=== PATIENT | male | born 1955 | race Caucasian/White ===

== ENCOUNTER 2022-06-09 15:16 | Inpatient (IN) | payer MEDICARE, OTHER ==
[~2022-06-09] VITALS: Ht 175.3 cm; Wt 71.7 kg
[2022-06-09 16:04] LABS: Basophils # (auto) 0.1 10 ^3/uL (0-0.2); Basophils % (auto) 0.8 % (0.0-2.0); Eosinophils # (auto) 0.3 10 ^3/uL (0-0.8); Eosinophils % (auto) 2.4 % (0.0-7.0); Hematocrit 37.2 % (41.0-53.0); Hemoglobin 12.3 g/dL (13.5-17.5); Lymphocytes # (auto) 1.2 10 ^3/uL (0.4-5.4); Lymphocytes % (auto) 11.1 % (10.0-50.0); Mean Corpuscular Volume 87.9 fL (80.0-100.0); Monocytes # (auto) 0.8 10 ^3/uL (0-1.3); Monocytes % (auto) 7.7 % (0.0-12.0); Neutrophils # (auto) 8.4 10 ^3/uL (1.6-8.6); Nucleated Red Blood Cells % 0.2 %; Red Blood Cells 4.24 10^6/uL (4.5-5.90); Red Cell Distribution Width 15.3 % (11.8-14.3); White Blood Cell 10.7 10^3/uL (4.4-10.8)
[2022-06-09 16:14] LABS: INR 1.03 (0.9-1.15); Partial Thromboplastin Time 26.2 sec (24.6-33.4)
[2022-06-09 16:15] LABS: Albumin 2.9 g/dL (3.4-5.0); Calcium 8.6 mg/dL (8.5-10.1); Magnesium 2.3 mg/dL (1.6-2.6); Potassium 4.4 mmol/L (3.5-5.1)
[2022-06-09 16:17] LABS: BUN/Creatinine Ratio 11.8; Bilirubin, Total 0.7 mg/dL (0.2-1.0); Total Protein 5.4 g/dL (6.4-8.2)
[2022-06-09] MEDS ORDERED: cefTRIAXone 1GM/50ML D5W 50 ML IV ONE (18:00)
[2022-06-09] MEDS ORDERED: SODIUM CHLORIDE 0.9% 500 ML IV ONE (18:00)
[2022-06-09] MEDS ORDERED: AZITHROMYCIN 500MG/ 250ML 250 ML IV ONE (18:00)
[2022-06-09] MEDS ORDERED: ONDANSETRON HCL 4 MG/2 ML VIAL IV PRN (21:30)
[2022-06-09] MEDS ORDERED: FUROSEMIDE 20 MG/2 ML VIAL IV ONE (21:30)
[2022-06-09] MEDS ORDERED: ACETAMINOPHEN 325 MG TAB PO PRN (21:30)
[2022-06-09] MEDS ORDERED: DOCUSATE SOD 100 MG CAP PO PRN (21:30)
[2022-06-09] MEDS ORDERED: ALBUMIN 25% 100 ML IV ONE (21:30)
[2022-06-09] MEDS ORDERED: HYDROcodone-ACET 5/325MG TAB PO PRN (21:30)
[2022-06-09] MEDS ORDERED: NITROGLYCERIN 0.4 MG SL TAB SL PRN (23:00)
[2022-06-09] MEDS ORDERED: MORPHINE SULFATE INJ 2 MG/ml SYRG IV PRN (23:00)
[2022-06-10 01:20] VITALS: BP 118/66
[2022-06-10] MEDS ORDERED: CLOP75TA28 PO (02:32)
[2022-06-10] MEDS ORDERED: CARV25TA55 PO (02:32)
[2022-06-10] MEDS ORDERED: LOSA-69 PO (02:32)
[2022-06-10] MEDS ORDERED: ATOR-47 PO (02:32)
[2022-06-10] MEDS ORDERED: OXYB5TAB24 PO (02:32)
[2022-06-10] MEDS ORDERED: ASPI-543 PO (02:32)
[2022-06-10] MEDS ORDERED: AMLO-489 PO (02:32)
[2022-06-10 05:00] VITALS: BP 129/84
[2022-06-10 05:51] LABS: Basophils # (auto) 0.1 10 ^3/uL (0-0.2); Basophils % (auto) 0.7 % (0.0-2.0); Eosinophils # (auto) 0.4 10 ^3/uL (0-0.8); Eosinophils % (auto) 3.6 % (0.0-7.0); Hematocrit 35.2 % (41.0-53.0); Lymphocytes % (auto) 20.1 % (10.0-50.0); Mean Corpuscular Hemoglobin 29.9 pg (28.0-32.0); Mean Corpuscular Volume 87.8 fL (80.0-100.0); Monocytes # (auto) 0.9 10 ^3/uL (0-1.3); Monocytes % (auto) 9.5 % (0.0-12.0); Neutrophils # (auto) 6.5 10 ^3/uL (1.6-8.6); Neutrophils % (auto) 66.1 % (37.0-80.0); Red Blood Cells 4.01 10^6/uL (4.5-5.90); Red Cell Distribution Width 15.7 % (11.8-14.3); White Blood Cell 9.9 10^3/uL (4.4-10.8)
[2022-06-10 06:14] LABS: BUN/Creatinine Ratio 15.2; Calcium 8.2 mg/dL (8.5-10.1)
[2022-06-10 06:16] LABS: Bilirubin, Total 0.3 mg/dL (0.2-1.0); Total Protein 5.9 g/dL (6.4-8.2)
[2022-06-10 09:00] VITALS: BP 143/84
[2022-06-10] MEDS ORDERED: AZITHROMYCIN 500MG/ 250ML 250 ML IV SCH (10:00)
[2022-06-10] MEDS ORDERED: ASPirin 81 mg TAB PO SCH (10:00)
[2022-06-10] MEDS ORDERED: FUROSEMIDE 20 MG/2 ML VIAL IV SCH (10:00)
[2022-06-10 13:00] VITALS: BP 140/84
[2022-06-10] MEDS ORDERED: cefTRIAXone 1GM/50ML D5W 50 ML IV ONE (14:30)
[2022-06-10 17:00] VITALS: BP 149/93
[2022-06-10 17:12] LABS: Urine Bacteria FEW /hpf (None Seen); Urine Blood Negative /uL (Negative); Urine Mucus FEW (None Seen); Urine Specific Gravity 1.011 (1.001-1.035); Urine WBC 2 /hpf (0 - 3)
[2022-06-10 17:14] LABS: Amphetamine Screen, Urine POSITIVE (NEGATIVE); Barbiturate Scree,Urine NEGATIVE (NEGATIVE); Benzodiazephine Screen, Urine NEGATIVE (NEGATIVE); Cannabinoid Screen, Urine NEGATIVE (NEGATIVE); Cocaine Screen, Urine NEGATIVE (NEGATIVE); Opiate Scree,Urine NEGATIVE (NEGATIVE); Phencyclidine Screen, Urine NEGATIVE (NEGATIVE)
[2022-06-11] MEDS ORDERED: cefTRIAXone 1GM/50ML D5W 50 ML IV SCH (09:00)
== END 2022-06-10 22:16 | disposition left against medical advice (07) | DRG 308 ==
LOC: ER 15:16 → EDBD 15:16 → TELE 22:53 → TELE-EAST 23:57
PROVIDERS: ADMIT Nurse Practitioner Family; ATTEND Internal Medicine Nephrology
DX: R00.1 Bradycardia, unspecified (principal); J18.9 Pneumonia, unspecified organism; G93.40 Encephalopathy, unspecified; I13.0 Hypertensive heart and chronic kidney disease with heart failure and stage 1 through stage 4 chronic kidney disease, or unspecified chronic kidney disease; I95.9 Hypotension, unspecified; E86.0 Dehydration; E86.1 Hypovolemia; N18.32 Chronic kidney disease, stage 3b; Z53.29 Procedure and treatment not carried out because of patient's decision for other reasons; I25.10 Atherosclerotic heart disease of native coronary artery without angina pectoris; E78.5 Hyperlipidemia, unspecified; I50.9 Heart failure, unspecified; R09.89 Other specified symptoms and signs involving the circulatory and respiratory systems; R55 Syncope and collapse; Z20.822 Contact with and (suspected) exposure to COVID-19
CPT/HCPCS: 36415; 71045; 80053; 80307; 81001; 83735; 83880; 84484; 85025; 85610; 85730; 87040; 93005; 93306; 96365; 96366; 96367; 96368; 96375; 99291; G0378; J0696; P9047

== ENCOUNTER 2023-05-29 14:35 | Inpatient (IN) | payer MEDICARE, OTHER ==
[~2023-05-29] VITALS: Ht 175.3 cm; Wt 79.0 kg
[~2023-05-29 14:35] MED LIST: AMLO1TAB22 PO; ASPI-543 PO; ATOR-47 PO; CARV25TA55 PO; CLOP75TA28 PO; LOSA50TA46 PO; OXYB5TAB24 PO
[2023-05-29 15:02] LABS: Basophils # (auto) 0.1 10 ^3/uL (0-0.2); Basophils % (auto) 1.2 % (0.0-2.0); Eosinophils # (auto) 0.4 10 ^3/uL (0-0.8); Eosinophils % (auto) 5.6 % (0.0-7.0); Hematocrit 37.8 % (41.0-53.0); Hemoglobin 12.7 g/dL (13.5-17.5); Lymphocytes # (auto) 1.5 10 ^3/uL (0.4-5.4); Lymphocytes % (auto) 18.7 % (10.0-50.0); Mean Corpuscular Hemoglobin 29.5 pg (28.0-32.0); Mean Corpuscular Hgb Conc. 33.7 g/dL (32.0-36.0); Mean Corpuscular Volume 87.6 fL (80.0-100.0); Monocytes # (auto) 0.7 10 ^3/uL (0-1.3); Monocytes % (auto) 8.3 % (0.0-12.0); Neutrophils # (auto) 5.3 10 ^3/uL (1.6-8.6); Neutrophils % (auto) 66.2 % (37.0-80.0); Nucleated Red Blood Cells % 0.1 %; Red Blood Cells 4.31 10^6/uL (4.5-5.90)
[2023-05-29 15:22] LABS: Albumin 3.4 g/dL (3.4-5.0); Calcium 8.8 mg/dL (8.5-10.1); Potassium 4.7 mmol/L (3.5-5.1)
[2023-05-29 15:25] LABS: Bilirubin, Total 0.8 mg/dL (0.2-1.0); Total Protein 6.1 g/dL (6.4-8.2)
[2023-05-29] MEDS ORDERED: hydrALAZINE HCL 20 MG/ML VL IV ONE (16:00)
[2023-05-29] MEDS ORDERED: FUROSEMIDE 40 MG/4 ML VIAL IV ONE (17:00)
[2023-05-29] MEDS ORDERED: IPRATROPIUM BROM 0.5 MG/2.5ML INH SOL NEB PRN (18:00)
[2023-05-29] MEDS ORDERED: ALBUTEROL SULF 2.5 MG/0.5ML(0.5%) NEB SOLN NEB PRN (18:00)
[2023-05-29] MEDS ORDERED: NITROGLYCERIN 0.4 MG SL TAB SL PRN (18:00)
[2023-05-29] MEDS ORDERED: hydrALAZINE HCL 20 MG/ML VL IV PRN (18:00)
[2023-05-29] MEDS ORDERED: DOCUSATE SOD 100 MG CAP PO PRN (18:00)
[2023-05-29] MEDS ORDERED: MORPHINE SULFATE INJ 2 MG/ml SYRG IV PRN (18:00)
[2023-05-29 18:39] VITALS: O2SAT 97
[2023-05-29 18:40] VITALS: O2SAT 97
[2023-05-29 19:04] VITALS: BP 125/70; PULSE 74; RESP 18; TEMP 97.9; O2SAT 99
[2023-05-29 19:20] VITALS: PULSE 79; RESP 27; TEMP 98; O2SAT 97
[2023-05-29] MEDS: SODIUM CHLOR 0.9% PF (SALINE LOCK) 10ML VIAL/SYR IV SCH (22:07)
[2023-05-29] MEDS: CARVEDILOL 12.5 MG TAB PO SCH (22:14)
[2023-05-30 04:12] LABS: Amphetamine Screen, Urine POSITIVE (NEGATIVE); Barbiturate Scree,Urine NEGATIVE (NEGATIVE); Benzodiazephine Screen, Urine NEGATIVE (NEGATIVE); Cannabinoid Screen, Urine NEGATIVE (NEGATIVE)
[2023-05-30 04:19] LABS: Cocaine Screen, Urine NEGATIVE (NEGATIVE); Opiate Scree,Urine NEGATIVE (NEGATIVE); Phencyclidine Screen, Urine NEGATIVE (NEGATIVE)
[2023-05-30 05:32] LABS: Basophils # (auto) 0.1 10 ^3/uL (0-0.2); Basophils % (auto) 0.9 % (0.0-2.0); Eosinophils # (auto) 0.4 10 ^3/uL (0-0.8); Eosinophils % (auto) 4.9 % (0.0-7.0); Hematocrit 35.4 % (41.0-53.0); Lymphocytes # (auto) 1.5 10 ^3/uL (0.4-5.4); Lymphocytes % (auto) 17.9 % (10.0-50.0); Mean Corpuscular Hemoglobin 29.6 pg (28.0-32.0); Mean Corpuscular Hgb Conc. 33.8 g/dL (32.0-36.0); Mean Corpuscular Volume 87.5 fL (80.0-100.0); Monocytes # (auto) 0.7 10 ^3/uL (0-1.3); Monocytes % (auto) 8.6 % (0.0-12.0); Neutrophils # (auto) 5.5 10 ^3/uL (1.6-8.6); Neutrophils % (auto) 67.7 % (37.0-80.0); Red Blood Cells 4.04 10^6/uL (4.5-5.90); Red Cell Distribution Width 14.9 % (11.8-14.3); White Blood Cell 8.1 10^3/uL (4.4-10.8)
[2023-05-30 05:48] LABS: Calcium 8.4 mg/dL (8.5-10.1); Potassium 3.7 mmol/L (3.5-5.1)
[2023-05-30 05:51] LABS: BUN/Creatinine Ratio 17.2 (10.0-20.0); Bilirubin, Total 0.8 mg/dL (0.2-1.0)
[2023-05-30] MEDS: SODIUM CHLOR 0.9% PF (SALINE LOCK) 10ML VIAL/SYR IV SCH (06:02)
[2023-05-30 08:00] VITALS: PULSE 73; RESP 16; O2SAT 98
[2023-05-30] MEDS ORDERED: ASPirin-EC 81 mg tab PO SCH (08:00)
[2023-05-30 10:00] VITALS: BP 136/78; PULSE 69; RESP 16; O2SAT 98
[2023-05-30] MEDS ORDERED: CLOPIDOGREL BISULFATE 75 MG TAB PO SCH (10:00)
[2023-05-30] MEDS ORDERED: amLODIPine BESYLATE 5 MG TAB PO SCH (10:00)
[2023-05-30] MEDS ORDERED: LOSARTAN POTASSIUM 50 MG TAB PO SCH (10:00)
[2023-05-30] MEDS ORDERED: ATORVASTATIN 20 MG TAB PO SCH (10:00)
[2023-05-30] MEDS: CARVEDILOL 12.5 MG TAB PO SCH (10:04)
== END 2023-05-30 10:41 | disposition left against medical advice (07) | DRG 291 ==
LOC: ER 14:35 → TELE 18:26
PROVIDERS: ADMIT Internal Medicine Pulmonary Disease; ATTEND Student in an Organized Health Care Education/Training Program
DX: I13.0 Hypertensive heart and chronic kidney disease with heart failure and stage 1 through stage 4 chronic kidney disease, or unspecified chronic kidney disease (principal); I50.33 Acute on chronic diastolic (congestive) heart failure; F19.20 Other psychoactive substance dependence, uncomplicated; N17.9 Acute kidney failure, unspecified; I16.0 Hypertensive urgency; Z53.29 Procedure and treatment not carried out because of patient's decision for other reasons; I25.10 Atherosclerotic heart disease of native coronary artery without angina pectoris; N18.9 Chronic kidney disease, unspecified; Z80.0 Family history of malignant neoplasm of digestive organs; Z95.5 Presence of coronary angioplasty implant and graft; I25.2 Old myocardial infarction; Z82.49 Family history of ischemic heart disease and other diseases of the circulatory system; Z72.0 Tobacco use
CPT/HCPCS: 36415; 71045; 80053; 80307; 83880; 84484; 85025; 93005; 96374; 96375; 99291; G0378

== ENCOUNTER 2025-08-09 18:15 | Inpatient (IN) | payer OTHER ==
[~2025-08-09] VITALS: Ht 175.3 cm; Wt 70.4 kg
[~2025-08-09 18:15] MED LIST changes: +LOSA-534 PO; -LOSA50TA46 PO
--- NOTE | 2025-08-09 19:14 | ECG ---
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
[2025-08-09] MEDS ORDERED: HEPARIN SODIUM (PORCINE) 5000 UNITS/ML 1ML VIAL IV ONE (19:30)
--- NOTE | 2025-08-09 19:34 | ED.PDOC ---
History of Present Illness HPI Comments 70-year-old female brought by paramedics because of chest pain for the past 2- 1/2 hours hold watching TV. History of coronary artery disease with four stent placements. Other than a coronary artery disease he does have a history of hypotension continues to smoke cigarettes. He is on Plavix. His blood pressure on arrival was 230 systolic. He was given nitro and aspirin in the field with mild relief. Chief Complaint: Chest Pain Time Seen by MD: 18:58 Primary Care Provider: SC Reviewed Notes: Nurses Notes, Medications, Allergies Allergies: Coded Allergies: NO KNOWN ALLERGIES (Unverified , 05/08/10) Home Meds Reported Medications Clopidogrel Bisulfate (Plavix) 75 Mg Tab, 1 TAB PO DAILY, #90 TAB 1 Refill 06/10/22 Oxybutynin Chloride (Ditropan Xl) 5 Mg Tab, 5 MG PO, TAB 06/10/22 Losartan Potassium (Losartan Potassium) 50 Mg Tab, 1 TAB PO DAILY, #30 TAB 5 Refills 06/10/22 Carvedilol (Carvedilol) 25 Mg Tab, 25 MG PO Q12HR for 30 Days, MG 06/10/22 Atorvastatin Calcium (ATORVASTATIN CALCIUM) 80 Mg Tab, 1 TAB PO DAILY, #30 TAB 5 Refills 06/10/22 Amlodipine Besylate (Amlodipine Besylate) 5 Mg Tab, 1 TAB PO DAILY, #30 TAB 5 Refills 06/10/22 Aspirin (Aspir-Low) 81 Mg Tab, 81 MG PO DAILY@BREAKFAST for 30 Days, MG 06/10/22 Information Source: Patient, Emergency Med Personnel Mode of Arrival: EMS Severity: Moderate Timing: Days Duration: Since onset Past Medical History PAST MEDICAL HISTORY: HTN, OR Surgical History: Unknown Family History Family History: Reviewed,noncontributory to illness Social History Smoker: Non-Smoker Alcohol: Denies ETOH Use Drugs: Denies Drug Use Lives In: Home Constitutional: denies: chills, diaphoresis, fatigue, fever, malaise, sweats, weakness, others EENTM: denies: blurred vision, double vision, ear bleeding, ear discharge, ear drainage, ear pain, ear ringing, eye pain, eye redness, hearing loss, mouth pain, mouth swelling, nasal discharge, nose bleeding, nose congestion, nose pain, photophobia, tearing, throat pain, throat swelling, voice changes, others Respiratory: denies: cough, hemoptysis, orthopnea, SOB at rest, shortness of breath, SOB with excertion, stridor, wheezing, others Cardiovascular: reports: chest pain; denies: dizzy spells, diaphoresis, Dyspnea on exertion, edema, irregular heart beat, left arm pain, lightheadedness, palpitations, PND, syncope, others Gastrointestinal: denies: abdomen distended, abdominal pain, blood streaked bowels, constipated, diarrhea, dysphagia, difficulty swallowing, hematemesis, melena, nausea, poor appetite, poor fluid intake, rectal bleeding, rectal pain, vomiting, others Genitourinary: denies: burning, dysuria, flank pain, frequency, hematuria, incontinence, penile discharge, penile sore, pain, testicle pain, testicle swelling, urgency, others Neurological: denies: dizziness, fainting, headache, left sided numbness, left sided weakness, numbness, paresthesia, pre-existing deficit, right sided n umbness, right sided weakness, seizure, speech problems, tingling, tremors, weakness, others Musculoskeletal: denies: back pain, gout, joint pain, joint swelling, muscle pain, muscle stiffness, neck pain, others Integumetry: denies: bruises, change in color, change in hair/nails, dryness, laceration, lesions, lumps, rash, wounds, others Allergic/Immunocompromised: denies: Difficulty Healing, Frequent Infections, Hives, Itching, others Hematologic/Lymphatic: denies: anemia, blood clots, easy bleeding, easy bruising, swollen glands, others Endocrine: denies: excessive hunger, excessive sweating, excessive thirst, excessive urination, flushing, intolerance to cold, intolerance to heat, unexplained weight gain, unexplained weight loss, others Psychiatric: denies: anxiety, bipolar disorder, depression, hopeless, panic disorder, schizophrenia, sleepless, suicidal, others Physical Exam General Appearance: Moderate Distress HEENT: Normal ENT Inspection, Pharynx Normal, TMs Normal Neck: Full Range of Motion, Non-Tender, Normal, Normal Inspection Respiratory: Chest Non-Tender, Lungs Clear, No Accessory Muscle Use, No Respiratory Distress, Normal Breath Sounds Cardiovascular: No Edema, No JVD, No Murmur, No Gallop, Normal Peripheral Pulses, Regular Rate/Rhythm Breast Exam: Deferred Gastrointestinal: No Organomegaly, Non Tender, No Pulsatile Mass, Normal Bowel Sounds, Soft Genitalia: Deferred Pelvic: Deferred Rectal: Deferred Extremities: No calf tenderness, Normal capillary refill, Normal inspection, Normal range of motion, Non-tender, No pedal edema Musculoskeletal : Apperance: Normal Neurologic: Alert, income tax adjuster II-XII nml as Tested, No Motor Deficits, Normal Affect, Normal Mood, No Sensory Deficits Cerebellar Function: NOT DONE Reflexes: NOT DONE Skin: Dry, Normal Color, Warm Peripheral Pulses: 3+ Radial (R), 3+ Radial (L) Lymphatic: No Adenopathy Was a procedure done? Was a procedure done?: No EKG EKG : Pulse Rate (adult): 91 [place]: Normal Cardiac Rhythm: NSR Block: RBBB Hypertrophy: LAE, EUSEBIO ST: Normal Comments LAFB Differential Dx Considerations may include: Coronary artery disease Electrolyte imbalance X-Ray, Labs, Meds, VS Vital Signs Date Time Temp Pulse Resp B/P (MAP) Pulse Ox O2 Delivery O2 Flow Rate FiO2 08/09/25 20:44 90 08/09/25 20:03 158/101 08/09/25 19:58 91 08/09/25 19:30 Room Air* 0 21 08/09/25 19:30 98.2 91 20 158/101 (120) 96 98.2 08/09/25 19:00 97.7 93 26 167/98 (121) 97 97.7 08/09/25 18:29 91 08/09/25 18:28 100.3 86 18 167/96 94 100.3 Lab Test 08/09/25 20:26 08/09/25 19:32 Range/Units Troponin I High Sensitivity 60 *H 57 *H </=54 ng/L White Blood Count 11.7 H 4.4-10.8 10^3/uL Red Blood Count 4.47 L 4.5-5.90 10^6/uL Hemoglobin 13.4 L 13.5-17.5 g/dL Hematocrit 39.1 L 41.0-53.0 % Mean Corpuscular Volume 87.6 80.0-100.0 fL Mean Corpuscular Hemoglobin 30.0 28.0-32.0 pg Mean Corpuscular Hemoglobin Concent 34.3 32.0-36.0 g/dL Red Cell Distribution Width 14.6 H 11.8-14.3 % Platelet Count 221 140-450 10^3/uL Mean Platelet Volume 8.7 6.9-10.8 fL Neutrophils (%) (Auto) 85.1 H 37.0-80.0 % Lymphocytes (%) (Auto) 5.8 L 10.0-50.0 % Monocytes (%) (Auto) 7.6 0.0-12.0 % Eosinophils (%) (Auto) 0.9 0.0-7.0 % Basophils (%) (Auto) 0.6 0.0-2.0 % Neutrophils # (Auto) 9.9 H 1.6-8.6 10 ^3/uL Lymphocytes # (Auto) 0.7 0.4-5.4 10 ^3/uL Monocytes # (Auto) 0.9 0-1.3 10 ^3/uL Eosinophils # (Auto) 0.1 0-0.8 10 ^3/uL Basophils # (Auto) 0.1 0-0.2 10 ^3/uL Nucleated Red Blood Cells 0.0 % Erythrocyte Sedimentation Rate 17 0-20 mm/hr Prothrombin Time 10.9 9.3-11.8 sec Prothrombin Time INR 1.03 0.9-1.15 Activated Partial Thromboplast Time 31.3 24.5-34.5 SEC D-Dimer, Quantitative 1.08 H 0.0-0.49 mg/L FEU Sodium Level 142 136-145 mmol/L Potassium Level 3.6 3.5-5.1 mmol/L Chloride Level 108 H 98-107 mmol/L Carbon Dioxide Level 23 20-31 mmol/L Anion Gap 11 5-15 Blood Urea Nitrogen 21 9-23 mg/dL Creatinine 1.52 H 0.700-1.30 mg/dL Glomerular Filtration Rate Calc 49 >90 mL/min BUN/Creatinine Ratio 13.8 10.0-20.0 Serum Glucose 108 H 74-106 mg/dL Calcium Level 8.8 8.7-10.4 mg/dL Magnesium Level 1.9 1.6-2.6 mg/dL Total Bilirubin 1.5 H 0.2-1.0 mg/dL Aspartate Amino Transferase (AST) 20 13-40 U/L Alanine Aminotransferase (ALT) 17 7-40 U/L Alkaline Phosphatase 93 46-116 U/L C-Reactive Protein High Sensitivity 4.19 H <1.0 mg/dL B-Type Natriuretic Peptide 1678.52 0-100 pg/mL Total Protein 6.0 5.7-8.2 g/dL Albumin 3.8 3.2-4.8 g/dL Thyroid Stimulating Hormone (TSH) 0.73 0.55-4.78 uIU/mL Current Medications Medications (Trade) Dose Ordered Sig/Vera Route Start Time Stop Time Status Last Admin Clonidine HCl (Catapres Tablet) 0.2 mg ONCE ONCE PO 08/09/25 19:45 08/09/25 19:46 DC 08/09/25 20:03 Enoxaparin Sodium (Lovenox) 70 mg ONCE ONCE SC 08/09/25 20:15 08/09/25 20:16 DC 08/09/25 20:44 [place] [id number] Ph: [phone] DIAGNOSTIC IMAGING Diagnostic Imaging Report : [id number] Signed PATIENT: ANASTACIO SNYDER ACCT: [id number] UNIT: [id number] : 1955 LOC: ER ROOM / BED: / AGE / SEX: 70 / M ADM STATUS: REG ER SERVICE 25 ORDERING PHYSICIAN: YOBANY LANG MD PROCEDURE(s): CXRP - CHEST PORTABLE REASON: sob ORDER NUMBER(s): [id number], ACCESSION NUMBER(s): [id number] CHEST RADIOGRAPH Indication: sob Technique: Single frontal view of the chest was obtained Comparison: XY CHEST PORTABLE on DOS: 05/29/23, CHEST PORTABLE on DOS: 06/09/22, CXRP on DOS: 06/09/22 FINDINGS: Lines and Tubes: None Lungs: No focal consolidation. Diffuse interstitial prominence with perihilar fullness. Pleura: No effusion. No pneumothorax. Cardiomediastinal contours: Mild cardiomegaly Bones: No acute osseous abnormality. Fracture deformity of right distal clavicle. IMPRESSION: Mild cardiomegaly with findings suggestive of congestive heart failure. Underlying infectious process can not be excluded. ATED BY: MARIANA AVILES DO DICTATED DATE/TIME: 08/09/252018 SIGNED BY: MARIANA AVILES DO SIGNED DATE/TIME: 08/09/252018 CC: Patient alert. Came in because of chest pain. Vitals stable. Answering questions. Was given aspirin nitro in the field. Blood pressure elevated pain Was given clonidine. EKG reviewed does not show any acute changes. Continue to monitor. Time of 1ST Reevaluation: 19:33 Reevaluation 1ST: Unchanged Patient Education/Counseling: Diagnosis, Treatment, Prognosis Family Education/Counseling: No Family Present SEPSIS Sepsis Screen Date sepsis recognized/suspect: Aug 09, 2025 Time Sepsis recognized/suspect: 1853 Recent Procedure: No On Antibiotic Therapy: No Respiratory Rate >20: No Heart Rate >90: No Temp<36 C (96.8 F) or >38.3 C: No SBP <90 or MAP <65 mmHG: No New Acute Mental Status Change: No Is the patient on CPAP, BIPAP,: No Physician Orders Electrocardigram (08/09/25 19:33) Electrocardigram (08/09/25 21:33) Chest Portable (08/09/25 19:26) Urinalysis (08/09/25 19:26) Vital Signs Date Time Temp Pulse Resp B/P (MAP) Pulse Ox O2 Delivery O2 Flow Rate FiO2 08/09/25 20:44 90 08/09/25 20:03 158/101 08/09/25 19:58 91 08/09/25 19:30 Room Air* 0 21 08/09/25 19:30 98.2 91 20 158/101 (120) 96 98.2 08/09/25 19:00 97.7 93 26 167/98 (121) 97 97.7 08/09/25 18:29 91 08/09/25 18:28 100.3 86 18 167/96 94 100.3 Laboratory Tests Test 08/09/25 19:32 White Blood Count 11.7 10^3/uL (4.4-10.8) H Medications Medications Dose Ordered Sig/Vera Route Start Time Stop Time Status Last Admin Dose Admin Clonidine HCl 0.2 mg ONCE ONCE PO 08/09/25 19:45 08/09/25 19:46 DC 08/09/25 20:03 Enoxaparin Sodium 70 mg ONCE ONCE SC 08/09/25 20:15 08/09/25 20:16 DC 08/09/25 20:44 Departure 1 Departure Time of Disposition: 19:34 Impression: Primary Impression: Chest pain of unknown etiology Additional Impression: HTN (hypertension) Qualified Codes: I10 - Essential (primary) hypertension Disposition: ADMITTED INPATIENT Admit to: Med Surg Condition: Guarded Critical Care Note Critical Care Time?: Yes (90 min-critical care time only) Stability Stability form required: No Heart Score Heart Score: Heart Score Response (Comments) Value History Slightly Suspicious 0 EKG Normal 0 Age >65 2 Risk Factors >3 or Hx ASHD 2 Troponin Normal limit 0 Total 4 I personally scribed for YOBANY LANG MD ([email or web address]) on 08/09/25 at 19:58. Electronically submitted by Colby Cabrales ([email or web address]). I personally scribed for YOBANY LANG MD ([email or web address]) on 08/09/25 at 22:57. Electronically submitted by Colby Cabrales ([email or web address]). YOBANY LANG MD Aug 09, 2025 19:34
[2025-08-09 19:43] LABS: Hematocrit 39.1 % (41.0-53.0); Hemoglobin 13.4 g/dL (13.5-17.5); Mean Corpuscular Hemoglobin 30.0 pg (28.0-32.0); Mean Corpuscular Volume 87.6 fL (80.0-100.0); Nucleated Red Blood Cells % 0.0 %
[2025-08-09 19:57] LABS: Alanine Aminotransferase 17 U/L (7-40); Albumin 3.8 g/dL (3.2-4.8); Alkaline Phosphatase 93 U/L (46-116); Anion Gap 11 (5-15); BUN/Creatinine Ratio 13.8 (10.0-20.0); Blood Urea Nitrogen 21 mg/dL (9-23); Calcium 8.8 mg/dL (8.7-10.4); Carbon Dioxide 23 mmol/L (20-31); Potassium 3.6 mmol/L (3.5-5.1); Sodium 142 mmol/L (136-145); Total Protein 6.0 g/dL (5.7-8.2)
[2025-08-09 19:59] LABS: INR 1.03 (0.9-1.15); Partial Thromboplastin Time 31.3 SEC (24.5-34.5); Prothrombin Time 10.9 sec (9.3-11.8)
[2025-08-09 20:00] LABS: Bilirubin, Total 1.5 mg/dL (0.2-1.0); Chloride 108 mmol/L (98-107); Glucose 108 mg/dL (74-106)
--- NOTE | 2025-08-09 20:22 | DVH ---
CHEST RADIOGRAPH Indication: sob Technique: Single frontal view of the chest was obtained Comparison: XY CHEST PORTABLE on DOS: 05/29/23, CHEST PORTABLE on DOS: 06/09/22, CXRP on DOS: 06/09/22 FINDINGS: Lines and Tubes: None Lungs: No focal consolidation. Diffuse interstitial prominence with perihilar fullness. Pleura: No effusion. No pneumothorax. Cardiomediastinal contours: Mild cardiomegaly Bones: No acute osseous abnormality. Fracture deformity of right distal clavicle. IMPRESSION: Mild cardiomegaly with findings suggestive of congestive heart failure. Underlying infectious process can not be excluded.
[2025-08-09] MEDS: ENOXAPARIN SOD 80 MG/0.8ML SYRINGE SC ONE (20:44)
[2025-08-09] MEDS: LOSARTAN POTASSIUM 25 MG TAB PO ONE (21:00)
[2025-08-09] MEDS ORDERED: NITROGLYCERIN 0.4 MG SL TAB SL PRN (21:00)
[2025-08-09] MEDS ORDERED: MORPHINE SULFATE INJ 2 MG/ml SYRG IV PRN (21:00)
--- NOTE | 2025-08-09 21:07 | DVHHP2 ---
History of Present Illness History of Present Illness Patient is 70-year-old male with past medical history of hypertension, hyperlipidemia, coronary artery disease with four PTCA who presented to hospital with a chief complaint of chest pain. As per patient chest pain is chronic, present at rest, 05/15, worsened with deep breathing, mainly located in substernal location. He also complaining of mild fever with chills and sputum production which has been worsened over the last seven days. Patient also continued to complaining of mild shortness of breath, associated with pleuritic chest pain. Patient denying any other symptoms including motor weakness, sensory deficits, syncopal episode, bowel or bladder irregularity. EMS gave him aspirin and nitroglycerin. During initial evaluation patient blood pressure was around 230 systolic as per ED evaluation. No any other new complaint at the time of evaluation. Past medical history: Hypertension, hyperlipidemia, coronary artery disease with PTCA Past surgical history: As per patient he underwent coronary intervention at [place]. Allergy: None Family history: Noncontributory Personal history: Patient is current smoker. Denying any other recreational drug use. Home medication: Patient did not recall what he takes at home. Medication list from medication reconciled: Amlodipine 5 mg p.o. daily, aspirin 81 mg p.o. daily, atorvastatin 80 mg p.o. daily, Coreg 25 mg p.o. b.i.d., clopidogrel 75 mg p.o. daily, losartan 50 mg p.o. daily, oxybutynin 5 mg p.o. daily. Review of Systems Constitutional: Yes: Fever, Chills Eyes: No: Pain, Vision change, Conjunctivae inflammation, Eyelid inflammation, Other, Redness Respiratory: Cough, Shortness of breath, SOB with excertion Cardiovascular: Chest Pain Gastrointestinal: No: Nausea, Vomiting, Abdominal Pain, Diarrhea, Constipation, Melena, Hematochezia, Other Genitourinary: No Dysuria, No Frequency, No Incontinence, No Hematuria, No Retention, No Other Musculoskeletal: No: other, neck pain, shoulder pain, arm pain, back pain, hand pain, leg pain, foot pain Neurological: No: Weakness, Numbness, Incoordination, Change in speech, Confusion, Seizures, Other Allergies: Coded Allergies: NO KNOWN ALLERGIES (Unverified , 05/08/10) Medications Current Medications Medications Dose Ordered Sig/Vera Route Start Time Stop Time Status Last Admin Dose Admin Nitroglycerin 0.4 mg Q5MINP PRN SL 08/09/25 21:00 UNV Morphine Sulfate 2 mg Q30M PRN IV 08/09/25 21:00 UNV Ceftriaxone Sodium 50 ml @ 100 mls/hr DAILY@09 IV 08/10/25 09:00 UNV Doxycycline Hyclate 100 ml @ 50 mls/hr Q12H IV 08/09/25 21:00 UNV Aspirin 81 mg DAILY PO 08/10/25 10:00 UNV Atorvastatin Calcium 40 mg HS PO 08/09/25 22:00 UNV Carvedilol 25 mg Q12HR PO 08/09/25 22:00 UNV Losartan Potassium 25 mg DAILY PO 08/10/25 10:00 UNV Pantoprazole Sodium 40 mg DAILY@0600 PO 08/10/25 06:00 UNV Enoxaparin Sodium 30 mg DAILY SC 08/10/25 10:00 UNV Exam Vital Signs Vital Signs Date Time Temp Pulse Resp B/P (MAP) Pulse Ox O2 Delivery O2 Flow Rate FiO2 08/09/25 20:03 158/101 08/09/25 19:58 91 08/09/25 19:30 Room Air* 0 21 08/09/25 19:30 98.2 20 96 98.2 Exam General Appearance: Cooperative. Well developed. Well nourished. NAD Head Exam: Normal inspection Neck Exam: Normal inspection. Non-tender. Normal alignment Pulmonary/Respiratory: Chest non-tender. Clear bilateral breath sounds Cardiovascular/Chest: Regular rate and rhythm. Systolic murmur. No JVD. Peripheral Pulses: 2+ Radial (R). 2+ Radial (L). 2+ Pedal (R). 2+ Pedal (L) Abdominal Exam: Normal bowel sounds. Soft. Nontender. No hepatospenomegaly. No masses Ankle Exam: Negative ankle edema Lower extremities: Negative lower extremity edema Neuro/Mental Status: A&O x4. Coherent Thoughts/Psych: Normal thought pattern. Appropriate mood and affect. Good judgement and insight Appearance: In no acute distress Skin Exam: Normal inspection. Normal color. Warm. Dry Labs/Xrays Labs Test 08/09/25 20:26 08/09/25 19:32 Range/Units Troponin I High Sensitivity 60 *H </=54 ng/L White Blood Count 11.7 H 4.4-10.8 10^3/uL Red Blood Count 4.47 L 4.5-5.90 10^6/uL Hemoglobin 13.4 L 13.5-17.5 g/dL Hematocrit 39.1 L 41.0-53.0 % Mean Corpuscular Volume 87.6 80.0-100.0 fL Mean Corpuscular Hemoglobin 30.0 28.0-32.0 pg Mean Corpuscular Hemoglobin Concent 34.3 32.0-36.0 g/dL Red Cell Distribution Width 14.6 H 11.8-14.3 % Platelet Count 221 140-450 10^3/uL Mean Platelet Volume 8.7 6.9-10.8 fL Neutrophils (%) (Auto) 85.1 H 37.0-80.0 % Lymphocytes (%) (Auto) 5.8 L 10.0-50.0 % Monocytes (%) (Auto) 7.6 0.0-12.0 % Eosinophils (%) (Auto) 0.9 0.0-7.0 % Basophils (%) (Auto) 0.6 0.0-2.0 % Neutrophils # (Auto) 9.9 H 1.6-8.6 10 ^3/uL Lymphocytes # (Auto) 0.7 0.4-5.4 10 ^3/uL Monocytes # (Auto) 0.9 0-1.3 10 ^3/uL Eosinophils # (Auto) 0.1 0-0.8 10 ^3/uL Basophils # (Auto) 0.1 0-0.2 10 ^3/uL Nucleated Red Blood Cells 0.0 % Prothrombin Time 10.9 9.3-11.8 sec Prothrombin Time INR 1.03 0.9-1.15 Activated Partial Thromboplast Time 31.3 24.5-34.5 SEC Sodium Level 142 136-145 mmol/L Potassium Level 3.6 3.5-5.1 mmol/L Chloride Level 108 H 98-107 mmol/L Carbon Dioxide Level 23 20-31 mmol/L Anion Gap 11 5-15 Blood Urea Nitrogen 21 9-23 mg/dL Creatinine 1.52 H 0.700-1.30 mg/dL Glomerular Filtration Rate Calc 49 >90 mL/min BUN/Creatinine Ratio 13.8 10.0-20.0 Serum Glucose 108 H 74-106 mg/dL Calcium Level 8.8 8.7-10.4 mg/dL Total Bilirubin 1.5 H 0.2-1.0 mg/dL Aspartate Amino Transferase (AST) 20 13-40 U/L Alanine Aminotransferase (ALT) 17 7-40 U/L Alkaline Phosphatase 93 46-116 U/L Total Protein 6.0 5.7-8.2 g/dL Albumin 3.8 3.2-4.8 g/dL SEPSIS Sepsis Screen Date sepsis recognized/suspect: Aug 09, 2025 Time Sepsis recognized/suspect: 1853 Recent Procedure: No On Antibiotic Therapy: No Respiratory Rate >20: No Heart Rate >90: No Temp<36 C (96.8 F) or >38.3 C: No SBP <90 or MAP <65 mmHG: No New Acute Mental Status Change: No Is the patient on CPAP, BIPAP,: No Physician Orders Electrocardigram (08/09/25 19:33) Electrocardigram (08/09/25 21:33) Chest Portable (08/09/25 19:26) Urinalysis (08/09/25 19:26) Troponin-I Hs (08/09/25 22:26) Admit (08/09/25 20:56) Nitroglycerin Sublingual (Ntrostat Subli (08/09/25 21:00) Morphine Sulfate Injection (08/09/25 21:00) Oxygen By Nasal Cannula (08/09/25 20:56) Stat Ekg For Chest Pain (08/09/25 20:56) Notify Md Of Changes From Base (08/09/25 20:56) Hospital Insurance Clerk For 24 Hours (08/09/25 20:56) Emergency Dysrhythmia Protocol (08/09/25 20:56) Rhythm Strips Once Every Shift (08/09/25 20:56) B-Type Natriuretic Peptide (08/09/25 20:57) Thyroid Stimulating Hormone (08/09/25 20:57) Drug Screen (08/09/25 20:57) Erythrocyte Sedimentation Rate (08/09/25 20:57) C-Reactive Protein (08/09/25 20:57) D-Dimer (08/09/25 20:59) Ceftriaxone 1gm/50ml (Rocephin) (08/10/25 09:00) Ceftriaxone 1gm/50ml (Rocephin) (08/09/25 21:00) Doxycycline 100mg/100ml (Vibramycin) (08/09/25 21:00) Doxycycline 100mg/100ml (Vibramycin) (08/09/25 21:00) Respiratory Culture W/ Gs (08/09/25 20:59) Lactic Acid W/ Reflex Order (08/09/25 20:59) Blood Culture (08/09/25 20:59) Aspirin Tablet (08/10/25 10:00) Atorvastatin (Lipitor) (08/09/25 22:00) Carvedilol Tablet (Coreg Tablet) (08/09/25 22:00) Losartan Tablet (Cozaar Tablet) (08/10/25 10:00) Losartan Tablet (Cozaar Tablet) (08/09/25 21:00) Pantoprazole Tablet (Protonix Tablet) (08/09/25 21:00) Pantoprazole Tablet (Protonix Tablet) (08/10/25 06:00) Enoxaparin Sodium (Lovenox) (08/10/25 10:00) Furosemide Injection (Lasix Injection) (08/10/25 10:00) Furosemide Injection (Lasix Injection) (08/09/25 21:15) Magnesium (08/09/25 21:05) Hemoglobin A1c (08/10/25 04:00) Lipid Panel (08/10/25 04:00) Vital Signs Date Time Temp Pulse Resp B/P (MAP) Pulse Ox O2 Delivery O2 Flow Rate FiO2 08/09/25 20:03 158/101 08/09/25 19:58 91 08/09/25 19:30 Room Air* 0 21 08/09/25 19:30 98.2 91 20 158/101 (120) 96 98.2 08/09/25 19:00 97.7 93 26 167/98 (121) 97 97.7 08/09/25 18:29 91 08/09/25 18:28 100.3 86 18 167/96 94 100.3 Laboratory Tests Test 08/09/25 19:32 White Blood Count 11.7 10^3/uL (4.4-10.8) H Medications Medications Dose Ordered Sig/Vera Route Start Time Stop Time Status Last Admin Dose Admin Clonidine HCl 0.2 mg ONCE ONCE PO 08/09/25 19:45 08/09/25 19:46 DC 08/09/25 20:03 0.2 MG Enoxaparin Sodium 70 mg ONCE ONCE SC 08/09/25 20:15 08/09/25 20:16 DC 08/09/25 20:44 70 MG Assessment/Plan Assessment/Plan Chest pain rule out ACS Chest pain ? Pneumonia Gram-positive versus negative Sepsis due to pneumonia Acute CHF systolic versus diastolic NSTEMI type 2 Elevated d -dimer Rule out PE Bronchiectasis Urinary tract infection Lactic acidosis CKD stage 3 History of coronary artery disease with PTCA * 4 stents Hypertension Current smoker Methamphetamine abuse QTC prolongation Left ventricular hypertrophy plan/ Recommendation -continue IV antibiotic with ceftriaxone and doxycycline. Avoid fluoroquinolones/aminoglycoside given prolonged QT. -CT angio chest given elevated D-dimer/tachypnea/pleuritic chest pain. -alleviated lactic acidosis given underlying pneumonia/CHF. -continue Lasix 20 mg once daily, elevated BNP at 1678. pending echocardiogram, monitor electrolytes including magnesium. -NSTEMI type 2 with underlying coronary artery disease. Continue aspirin 81 mg p.o. daily, atorvastatin 80 mg p.o. daily. -sepsis protocol with lactic acidosis, pending blood culture, urine culture, sputum culture. -continue to monitor kidney function, elevated creatinine with GFR 49. -EKG showed sinus rhythm with QTC prolongation. Avoid QT prolongation medication. -elevated CRP at 4.19, likely related to underlying infection. -PUD prophylaxis with Protonix. -DVT prophylaxis with Lovenox. Goals of care discussed greater than 24 minutes. DNI/DNR. Plan discussed with Dr Timmons Plan discussed with: Patient, Other (RN) My Orders Orders - ZENON MELARA RESIDENT Procedure Category Date Status Time Admit ADMIT 08/09/25 Transmitted 20:56 Nitroglycerin PHA 08/09/25 Logged Sublingual (Ntrostat 21:00 Morphine Sulfate PHA 08/09/25 Logged Injection 21:00 Oxygen By Nasal RT 08/09/25 Transmitted Cannula 20:56 Stat Ekg For Chest KAILYN 08/09/25 In Process Pain 20:56 Notify Of Changes KAILYN 08/09/25 In Process From Base 20:56 Hospital Insurance Clerk For KAILYN 08/09/25 In Process 24 Hours 20:56 Emergency Dysrhythmia KAILYN 08/09/25 In Process Protocol 20:56 Rhythm Strips Once KAILYN 08/09/25 In Process Every Shift 20:56 B-Type Natriuretic LAB 08/09/25 In Process Peptide 20:57 Thyroid Stimulating LAB 08/09/25 In Process Hormone 20:57 Drug Screen LAB 08/09/25 Logged 20:57 Erythrocyte LAB 08/09/25 In Process Sedimentation Rate 20:57 C-Reactive Protein LAB 08/09/25 In Process 20:57 D-Dimer LAB 08/09/25 Logged 20:59 Ceftriaxone 1gm/50ml PHA 08/10/25 Logged (Rocephin) 09:00 Ceftriaxone 1gm/50ml PHA 08/09/25 Logged (Rocephin) 21:00 Doxycycline PHA 08/09/25 Logged 100mg/100ml 21:00 Doxycycline PHA 08/09/25 Logged 100mg/100ml 21:00 Respiratory Culture ORLY 08/09/25 Logged W/ Gs 20:59 Lactic Acid W/ Reflex LAB 08/09/25 Logged Order 20:59 Blood Culture ORLY 08/09/25 Logged 20:59 Aspirin Tablet PHA 08/10/25 Logged 10:00 Atorvastatin (Lipitor) PHA 08/09/25 Logged 22:00 Carvedilol Tablet PHA 08/09/25 Logged (Coreg Tablet) 22:00 Losartan Tablet PHA 08/10/25 Logged (Cozaar Tablet) 10:00 Losartan Tablet PHA 08/09/25 Logged (Cozaar Tablet) 21:00 Pantoprazole Tablet PHA 08/09/25 Logged (Protonix Tablet) 21:00 Pantoprazole Tablet PHA 08/10/25 Logged (Protonix Tablet) 06:00 Enoxaparin Sodium PHA 08/10/25 Logged (Lovenox) 10:00 Furosemide Injection PHA 08/10/25 Transmitted (Lasix Injection) 10:00 Furosemide Injection PHA 08/09/25 Transmitted (Lasix Injection) 21:15 Magnesium LAB 08/09/25 Transmitted 21:05 Hemoglobin A1c LAB 08/10/25 Verified 04:00 Lipid Panel LAB 08/10/25 Verified 04:00 Date of Service: Aug 10, 2025 Billing Provider: LISA LOWRY MD Common Visit Codes: [id number] INP/OBS CARE (HIGH) Secondary Visit Codes: 08640-[id number] CARE PLAN 30 MINUTES ZENON MELARA RESIDENT Aug 09, 2025 21:07
[2025-08-09] MEDS: DOXYCYCLINE 100MG/100ML 100 ML IV ONE (21:50)
[2025-08-09] MEDS: FUROSEMIDE 20 MG/2 ML VIAL IV ONE (21:52)
[2025-08-09] MEDS: CARVEDILOL 12.5 MG TAB PO SCH (22:00)
[2025-08-09 22:01] LABS: Lactic Acid w/Reflex 2.3 mmol/L (0.4-2.0)
[2025-08-09] MEDS: PANTOPRAZOLE 40 MG TAB PO ONE (22:14)
[2025-08-09] MEDS: ATORVASTATIN 20 MG TAB PO SCH (22:35)
[2025-08-09] MEDS: IOHEXOL 350 MG/ML 100ML IJ ONE (22:53)
[2025-08-09 23:20] LABS: Urine Budding Yeast OCCASIONAL /hpf (None Seen); Urine Protein, UAD 1+ (Negative)
[2025-08-09 23:28] VITALS: BP 142/81; PULSE 80; RESP 16; TEMP 97.8; O2SAT 96
[2025-08-09 23:38] LABS: Amphetamine Screen, Urine Pos (NEGATIVE); Barbiturate Scree,Urine Neg (NEGATIVE); Benzodiazephine Screen, Urine Neg (NEGATIVE); Cannabinoid Screen, Urine Neg (NEGATIVE); Cocaine Screen, Urine Neg (NEGATIVE); Opiate Scree,Urine Neg (NEGATIVE); Phencyclidine Screen, Urine Neg (NEGATIVE)
[2025-08-10] VITALS (8 sets, daily range): BP systolic 100–160; BP diastolic 71–106; PULSE 52–81; RESP 14–22; TEMP 97.9–98.5; O2SAT 96–99
--- NOTE | 2025-08-10 02:53 | DVH ---
CTA Chest with intravenous contrast INDICATION: PE COMPARISON: Previous day chest radiograph TECHNIQUE: Multidetector spiral CTA of the chest was performed of the chest with intravenous contrast . PULMONARY ANGIOGRAPHY PROTOCOL was utilized using a bolus-tracking technique centered on the main p ulmonary artery. Axial, coronal and sagittal multiplanar and MIP reformats were performed. Radiation Dose : 1. Chest: CTDI volume is 16 mGy. Dose-length product is 1284 mGy*cm The dose indicators for CT are the volume Computed Tomography (CT) Dose Index (CTDIvol) and the Dose Length Product (DLP), and are measured in units of mGy and mGy-cm, respectively. These indicators are not patient dose, but values generated from the CT scanner acquisition factors. The report includes radiation exposure data for exposures received during this examination. Findings: Pulmonary arteries: Technical factors adequate for assessment of the level of the lobar arteries. No filling defect identified. Central artery caliber within normal limits. Lower neck: Unremarkable. Lungs: No focal consolidation. Mild paraseptal emphysema in the right apex. Apical and basilar interl obular septal thickening. Pleura: Trace right pleural fluid. Heart/Vascular Structures: Borderline enlarged heart. Normal positioning of the interventricular sep tre. No pericardial effusion. Right coronary stent, with multivessel coronary atherosclerosis. Lymph Nodes: Prominent mediastinal and left hilar lymph nodes, probably reactive. Musculoskeletal: No acute osseous abnormality. Corticated ossification at the right acromioclavicular joint likely represents remote injury or surgery. Soft tissues: Unremarkable. Upper abdomen: No acute findings. IMPRESSION: 1. No pulmonary embolism to the level of the lobar arteries. Exam limited by beam hardening from arms down positioning, and contrast bolus timing. 2. Findings compatible with mild heart failure and vascular congestion.
[2025-08-10] MEDS ORDERED: CEFEPIME 2GM/50ML NS 50 ML IV ONE (04:00)
[2025-08-10] MEDS: PANTOPRAZOLE 40 MG TAB PO SCH (05:23)
--- NOTE | 2025-08-10 06:08 | DVH ---
Clinical History: dvt Comparison: None Technique: Duplex Doppler evaluation of the deep venous system of the right and left lower extremity from the co mmon femoral vein to the popliteal vein including color Doppler and spectral/pulsed waveform analysis was performed. Findings: The common femoral vein demonstrates appropriate compressibility and waveform variability. There is compressibility/patency of the great saphenous vein at the proximal thigh. The femoral vein demonstrates appropriate compressibility and waveform variability. The deep femoral vein demonstrates appropriate compressibility and waveform variability. The popliteal vein demonstrates appropriate compressibility and waveform variability. There is normal compressibility at the tibioperoneal trunk. Impression: 1. No right or left deep venous thrombosis.
[2025-08-10 06:13] LABS: Cholesterol 173 mg/dL (< 200); Triglycerides 84 mg/dL (< 150)
[2025-08-10 06:15] LABS: HDL Cholesterol 37 mg/dL (40-59)
[2025-08-10] MEDS: LOSARTAN POTASSIUM 25 MG TAB PO SCH (08:21)
[2025-08-10] MEDS: FUROSEMIDE 20 MG/2 ML VIAL IV SCH (08:26)
[2025-08-10] MEDS: ENOXAPARIN SOD 30 MG/0.3 ML SYRINGE SC SCH (08:27)
[2025-08-10] MEDS: DOXYCYCLINE 100MG/100ML 100 ML IV SCH (10:46)
--- NOTE | 2025-08-10 12:50 | DVHPN2 ---
Subjective Chest pain Reviewed: Care Plan, H&P, Labs, Medications, Previous Orders, Radiology Changes from previous H/P or p: No Changes Eyes: No Pain, No Vision change, No Conjunctivae inflammation, No Eyelid inflammation, No Other, No Redness Cardiovascular: Chest Pain Respiratory: Cough, Shortness of breath, SOB with excertion Gastrointestinal: No Nausea, No Vomiting, No Abdominal Pain, No Diarrhea, No Constipation, No Melena, No Hematochezia, No Other Genitourinary: No Dysuria, No Frequency, No Incontinence, No Hematuria, No Retention, No Other Musculoskeletal: No other, No neck pain, No shoulder pain, No arm pain, No back pain, No hand pain, No leg pain, No foot pain Objective Vitals Vital Signs Date Time Temp Pulse Resp B/P (MAP) Pulse Ox O2 Delivery O2 Flow Rate FiO2 08/10/25 09:25 66 118/76 08/10/25 09:00 98.2 20 97 98.2 08/10/25 08:10 Room Air* 0 21 Intake/Output Intake and Output 08/10/25 07:00 Intake Total 550 ml Output Total 250 ml Balance 300 ml Intake Oral 400 ml IV Total 150 ml Output Urine Total 250 ml # Bowel Movements 1 Medications Current Medications Medications Dose Ordered Sig/Vera Route Start Time Stop Time Status Last Admin Dose Admin Nitroglycerin 0.4 mg Q5MINP PRN SL 08/09/25 21:00 Morphine Sulfate 2 mg Q30M PRN IV 08/09/25 21:00 Ceftriaxone Sodium 50 ml @ 100 mls/hr DAILY@09 IV 08/10/25 09:00 08/10/25 09:21 100 MLS/HR Doxycycline Hyclate 100 ml @ 50 mls/hr Q12H IV 08/10/25 09:00 08/10/25 10:46 50 MLS/HR Aspirin 81 mg DAILY PO 08/10/25 10:00 08/10/25 08:20 81 MG Carvedilol 25 mg Q12HR PO 08/09/25 22:00 08/10/25 08:25 25 MG Losartan Potassium 25 mg DAILY PO 08/10/25 10:00 08/10/25 08:21 25 MG Pantoprazole Sodium 40 mg DAILY@0600 PO 08/10/25 06:00 08/10/25 05:23 40 MG Enoxaparin Sodium 30 mg DAILY SC 08/10/25 10:00 08/10/25 08:27 30 MG Furosemide 20 mg DAILY IV 08/10/25 10:00 08/10/25 08:26 20 MG Atorvastatin Calcium 80 mg HS PO 08/10/25 22:00 Laboratory Results Laboratory Tests 08/09/25 19:32 Chemistry Test 08/09/25 19:32 Albumin 3.8 g/dL (3.2-4.8) Calcium Level 8.8 mg/dL (8.7-10.4) Magnesium Level 1.9 mg/dL (1.6-2.6) Total Protein 6.0 g/dL (5.7-8.2) Coagulation Test 08/09/25 19:32 Prothrombin Time 10.9 sec (9.3-11.8) Prothrombin Time INR 1.03 (0.9-1.15) Activated Partial Thromboplast Time 31.3 SEC (24.5-34.5) D-Dimer, Quantitative 1.08 mg/L FEU (0.0-0.49) H Lipid panel Test 08/10/25 05:06 Cholesterol Level 173 mg/dL (< 200) HDL Cholesterol 37 mg/dL (40-59) L Triglycerides Level 84 mg/dL (< 150) Cardiac Markers Test 08/09/25 19:32 B-Type Natriuretic Peptide 1678.52 pg/mL (0-100) LFT Test 08/09/25 19:32 Alanine Aminotransferase (ALT) 17 U/L (7-40) Alkaline Phosphatase 93 U/L (46-116) Aspartate Amino Transferase (AST) 20 U/L (13-40) Total Bilirubin 1.5 mg/dL (0.2-1.0) H HgA1c, TSH Test 08/09/25 19:32 08/10/25 05:06 Thyroid Stimulating Hormone (TSH) 0.73 uIU/mL (0.55-4.78) Hemoglobin A1c 5.1 % A1C (<5.7) Urinalysis Test 08/09/25 22:40 Urine Color Colorless (Yellow) Urine Clarity Turbid (Clear) H Urine pH 5.5 (5.0-9.0) Urine Specific [place] 1.012 (1.001-1.035) Urine Protein 1+ (Negative) H Urine Ketones Negative (Negative) Urine Blood Trace /uL (Negative) H Urine Nitrite 2+ (Negative) H Urine Bilirubin Negative (Negative) Urine Urobilinogen Normal mg/dL (Negative) Urine Leukocyte Esterase 3+ /uL (Negative) Urine RBC 6 /hpf (0 - 3) Urine Microscopic WBC 138 /HPF (0-3) H Urine Squamous Epithelial Cells None seen /hpf (<5) Urine Bacteria Few /hpf (None Seen) H Urine Yeast (Budding) Occasional /hpf (None Urine Glucose 4+ mg/dL (Normal) H Labs and/or images reviewed: Labs reviewed by me, Image(s) reviewed by me Assessment/Plan Assessment/Plan Chest pain rule out ACS troponin 57, treatment per ACS protocol, cardiology consult for Dr. Barrios Possible Pneumonia Gram-positive versus negative Rocephin doxycycline Sepsis due to pneumonia Acute CHF systolic versus diastolic NSTEMI type 2 Elevated d -dimer Rule out PE Bronchiectasis Urinary tract infection: Blood cultures urine cultures Rocephin Lactic acidosis CKD stage 3 History of coronary artery disease with PTCA * 4 stents Hypertension Chronic history of smoking more than 60 years, counselled, patient says patch does not work. Refused patch Methamphetamine abuse counseling Left ventricular hypertrophy Lives alone in [facility] Time spent 70 minutes Advanced care planning time 20 minutes Patient is full code Plan discussed with: Patient My Orders Orders - ARJUN BILLINGS MD Procedure Category Date Status Time * Cardiology Consult CONS 08/10/25 Verified 12:46 Date of Service: Aug 10, 2025 Billing Provider: ARJUN BILLINGS MD Common Visit Codes: [id number] CARE 30-74 MIN ARJUN BILLINGS MD Aug 10, 2025 12:50
[2025-08-10] MEDS: CLOPIDOGREL BISULFATE 75 MG TAB PO ONE (13:27)
--- NOTE | 2025-08-10 13:51 | ECG ---
[facility] Test Date: 2025-08-09 Test Time: 20:44:27 Pat Name: ANASTACIO SNYDER Department: Room: 0284T Gender: M Bag Shaker: : 1955 Requested By: EMERGENCY EMERGENCY Order Number: [id number] Reading MD: Measurements Intervals [place] Rate: 90 P: 66 NV: 160 QRS: -66 QRSD: 145 T: 64 QT: 437 QTc: 535 Interpretive Statements Sinus rhythm Biatrial enlargement RBBB and LAFB Probable anterolateral infarct, old Please click the below link to view image of tracing.
--- NOTE | 2025-08-10 14:46 | DVHSR ---
APPROVED REPORT EXAM: Two-dimensional and M-mode echocardiogram with Doppler and color Doppler. Blood Pressure: 160/106 mmHg INDICATION CHF RISK FACTORS Height: 5' 9", Weight: 154 DIMENSIONS LVDd4.3 (3.8-5.7cm)LA (2D)4.6 (1.9-4.0cm)Aortic Root3.4 (2.0-3.7cm) LVDs3.4 (2.5-4.0cm)LA (MM) (1.9-4.0cm)Aortic Cusp Exc1.8 (1.5-2.0cm) EF (%) 45.0 (55-70%)Rt. Atrium4.7 (1.9-4.0cm)Asc. Aorta cm IVSd1.8 (0.7-1.1cm)RV (D) (1.8-2.4cm) PWd1.2 (0.7-1.1cm) Mitral Valve MitralMitral Stenosis E wave0.70m/sMV Mean GR.mmHg A wave0.90m/sMV Peak GR.mmHg E/A ratio0.82D MVAcm2 Aortic Valve Aortic ValveAortic Stenosis V10.90m/Zuhair Mean GR.4mmHg V21.30m/Zuhair Peak GR.7mmHg LVOT Diameter2.1 (1.8-2.4cm)Doppler AVA2.40cm2 Pulmonic Valve V20.60m/s Tricuspid Valve TR Velocity2.50m/s [id number] Conclusion MILD LVH AND MILD LV DIASTOLIC DYSFUNCTION LV EF IS 50% GROSSLY NORMAL VALVES NO EFFUSION SLIGHTLY DILATED RV NORMAL RV FUNCTION NORMAL RV SP IS 30 MM OF HG
--- NOTE | 2025-08-10 14:54 | DVHINCON2 ---
Date Seen: Aug 10, 2025 Referring Physician MD Chon Reason for Consultation Chest pain with slightly elevated troponin History of Present Illness This is a 70-year-old man who presented to the emergency room via EMS with a chief complaint of chest pain for 2.5 hours. The patient is a very poor historian. Information mostly obtained from records which indicate the patient reported he was watching TV at the onset of symptoms and described as substernal, stabbing, nonradiating, worse with inspiration, and associated with a productive cough, pyrexia, and SOB. EN route to the hospital he was medicated with NTG SL 0.4 mg x 3 and ASA 324 mg p.o. x1. Upon arrival to the emergency room he underwent multiple 12 lead electrocardiogram revealing a sinus rhythm with T-wave inversion to lead V3-V4 and an associated right bundle branch block. Troponin levels peaked at 60 ng/L. Significant past medical history includes coronary artery disease status post PTCA including ONEIL x4 (completed at [facility] ?date), congestive heart failure, hypertension, dyslipidemia, tobacco use, and methamphetamine use. Past Medical History Past medical history reviewed. No other significant than mentioned above. Past Surgical History PTCA including four ONEIL Family History: Alcoholism G8 MOTHER G8 FATHER Cardiovascular disease G8 FATHER G8 SISTER Colon cancer G8 BROTHER Hypertension G8 MOTHER Family History Unable to retrieve family history at this time. Social History UDS positive for methamphetamines. Per previous providers, positive use of cigarettes. Allergies: Coded Allergies: NO KNOWN ALLERGIES (Unverified , 05/08/10) Home Meds Reported Medications Clopidogrel Bisulfate (Plavix) 75 Mg Tab, 1 TAB PO DAILY, #90 TAB 1 Refill 06/10/22 Oxybutynin Chloride (Ditropan Xl) 5 Mg Tab, 5 MG PO, TAB 06/10/22 Losartan Potassium (Losartan Potassium) 50 Mg Tab, 1 TAB PO DAILY, #30 TAB 5 Refills 06/10/22 Carvedilol (Carvedilol) 25 Mg Tab, 25 MG PO Q12HR for 30 Days, MG 06/10/22 Atorvastatin Calcium (ATORVASTATIN CALCIUM) 80 Mg Tab, 1 TAB PO DAILY, #30 TAB 5 Refills 06/10/22 Amlodipine Besylate (Amlodipine Besylate) 5 Mg Tab, 1 TAB PO DAILY, #30 TAB 5 Refills 06/10/22 Aspirin (Aspir-Low) 81 Mg Tab, 81 MG PO DAILY@BREAKFAST for 30 Days, MG 06/10/22 Home Meds Home medications reviewed. Current Medications Current Medications Medications (Trade) Dose Ordered Sig/Vera Route PRN Reason Start Time Stop Time Status Last Admin Nitroglycerin (Ntrostat Sublingual) 0.4 mg Q5MINP PRN SL FOR CHEST PAIN 08/09/25 21:00 Morphine Sulfate 2 mg Q30M PRN IV FOR CHEST PAIN 08/09/25 21:00 Ceftriaxone Sodium 50 ml @ 100 mls/hr DAILY@09 IV 08/10/25 09:00 08/10/25 09:21 Doxycycline Hyclate 100 ml @ 50 mls/hr Q12H IV 08/10/25 09:00 08/10/25 10:46 Aspirin 81 mg DAILY PO 08/10/25 10:00 08/10/25 08:20 Atorvastatin Calcium (Lipitor) 40 mg HS PO 08/09/25 22:00 08/10/25 00:19 DC 08/09/25 22:35 Carvedilol (Coreg Tablet) 25 mg Q12HR PO 08/09/25 22:00 08/10/25 08:25 Losartan Potassium (Cozaar Tablet) 25 mg DAILY PO 08/10/25 10:00 08/10/25 08:21 Pantoprazole Sodium (Protonix Tablet) 40 mg DAILY@0600 PO 08/10/25 06:00 08/10/25 05:23 Enoxaparin Sodium (Lovenox) 30 mg DAILY SC 08/10/25 10:00 08/10/25 08:27 Furosemide (Lasix Injection) 20 mg DAILY IV 08/10/25 10:00 08/10/25 08:26 Atorvastatin Calcium (Lipitor) 80 mg HS PO 08/10/25 22:00 Clopidogrel Bisulfate (Plavix) 75 mg DAILY PO 08/11/25 10:00 Review of Systems Constitutional: Pyrexia Ears, Nose, & Throat: No symptom reported Eyes: No symptom reported Neurological: No symptoms reported Pulmonary/Respiratory: Pleuritic chest pain, productive cough, SOB Cardiovascular: No symptom reported Gastrointestinal: No symptom reported Genitourinary: No symptom reported Musculoskeletal: No symptom reported Skin: No symptom reported Psychiatric: No symptom reported Endocrine: No symptom reported Hemotologic/Lymphatic: No symptom reported Vital Signs Vital Signs Date Time Temp Pulse Resp B/P (MAP) Pulse Ox O2 Delivery O2 Flow Rate FiO2 08/10/25 13:00 98.1 52 14 100/71 (81) 96 98.1 08/10/25 08:10 Room Air* 0 21 Physical Exam General Appearance: Cooperative. Unkept. Disheveled. In no acute distress Head Exam: Normal inspection Neck Exam: Normal inspection. Non-tender. Normal alignment Pulmonary/Respiratory: Chest non-tender. Crackles to bilateral breath sounds Cardiovascular/Chest: Regular rate and rhythm. S1, S2. Sinus rhythm with T- wave inversion to lead V3-V4 and RBBB. No murmurs. No JVD. Peripheral Pulses: 2+ Radial (R). 2+ Radial (L). 2+ Pedal (R). 2+ Pedal (L) Abdominal Exam: Normal bowel sounds. Soft. Ankle Exam: Negative ankle edema Lower extremities: Negative lower extremity edema Neuro/Mental Status: A&O x3. Coherent, somnolent, very poor historian Thoughts/Psych: Normal thought pattern. Uncooperative Appearance: In no acute distress Skin Exam: Normal inspection. Normal color. Warm. Dry Labs/Diagnostic Data Labs Test 08/10/25 05:06 08/09/25 23:50 08/09/25 22:40 08/09/25 22:15 Range/Units Hemoglobin A1c 5.1 <5.7 % A1C Triglycerides Level 84 < 150 mg/dL Cholesterol Level 173 < 200 mg/dL LDL Cholesterol 135 H < 100 mg/dL HDL Cholesterol 37 L 40-59 mg/dL Lactic Acid Level 1.2 0.4-2.0 mmol/L Urine Color Colorless Yellow Urine Clarity Turbid H Clear Urine pH 5.5 5.0-9.0 Urine Specific [place] 1.012 1.001-1.035 Urine Protein 1+ H Negative Urine Ketones Negative Negative Urine Blood Trace H Negative /uL Urine Nitrite 2+ H Negative Urine Bilirubin Negative Negative Urine Urobilinogen Normal Negative mg/dL Urine Leukocyte Esterase 3+ Negative /uL Urine RBC 6 0 - 3 /hpf Urine Microscopic WBC 138 H 0-3 /HPF Urine Squamous Epithelial Cells None seen <5 /hpf Urine Bacteria Few H None Seen /hpf Urine Yeast (Budding) Occasional None Seen /hpf Urine Glucose 4+ H Normal mg/dL Urine Opiates Screen Neg NEGATIVE Urine Fentanyl Screen Neg NEGATIVE Urine Barbiturates Screen Neg NEGATIVE Urine Phencyclidine Screen Neg NEGATIVE Urine Amphetamines Screen Pos NEGATIVE Urine Benzodiazepines Screen Neg NEGATIVE Urine Cocaine Screen Neg NEGATIVE Urine Cannabinoids Screen Neg NEGATIVE Troponin I High Sensitivity 57 *H </=54 ng/L Test 08/09/25 19:32 Range/Units White Blood Count 11.7 H 4.4-10.8 10^3/uL Red Blood Count 4.47 L 4.5-5.90 10^6/uL Hemoglobin 13.4 L 13.5-17.5 g/dL Hematocrit 39.1 L 41.0-53.0 % Mean Corpuscular Volume 87.6 80.0-100.0 fL Mean Corpuscular Hemoglobin 30.0 28.0-32.0 pg Mean Corpuscular Hemoglobin Concent 34.3 32.0-36.0 g/dL Red Cell Distribution Width 14.6 H 11.8-14.3 % Platelet Count 221 140-450 10^3/uL Mean Platelet Volume 8.7 6.9-10.8 fL Neutrophils (%) (Auto) 85.1 H 37.0-80.0 % Lymphocytes (%) (Auto) 5.8 L 10.0-50.0 % Monocytes (%) (Auto) 7.6 0.0-12.0 % Eosinophils (%) (Auto) 0.9 0.0-7.0 % Basophils (%) (Auto) 0.6 0.0-2.0 % Neutrophils # (Auto) 9.9 H 1.6-8.6 10 ^3/uL Lymphocytes # (Auto) 0.7 0.4-5.4 10 ^3/uL Monocytes # (Auto) 0.9 0-1.3 10 ^3/uL Eosinophils # (Auto) 0.1 0-0.8 10 ^3/uL Basophils # (Auto) 0.1 0-0.2 10 ^3/uL Nucleated Red Blood Cells 0.0 % Erythrocyte Sedimentation Rate 17 0-20 mm/hr Prothrombin Time 10.9 9.3-11.8 sec Prothrombin Time INR 1.03 0.9-1.15 Activated Partial Thromboplast Time 31.3 24.5-34.5 SEC D-Dimer, Quantitative 1.08 H 0.0-0.49 mg/L FEU Sodium Level 142 136-145 mmol/L Potassium Level 3.6 3.5-5.1 mmol/L Chloride Level 108 H 98-107 mmol/L Carbon Dioxide Level 23 20-31 mmol/L Anion Gap 11 5-15 Blood Urea Nitrogen 21 9-23 mg/dL Creatinine 1.52 H 0.700-1.30 mg/dL Glomerular Filtration Rate Calc 49 >90 mL/min BUN/Creatinine Ratio 13.8 10.0-20.0 Serum Glucose 108 H 74-106 mg/dL Calcium Level 8.8 8.7-10.4 mg/dL Magnesium Level 1.9 1.6-2.6 mg/dL Total Bilirubin 1.5 H 0.2-1.0 mg/dL Aspartate Amino Transferase (AST) 20 13-40 U/L Alanine Aminotransferase (ALT) 17 7-40 U/L Alkaline Phosphatase 93 46-116 U/L C-Reactive Protein High Sensitivity 4.19 H <1.0 mg/dL B-Type Natriuretic Peptide 1678.52 0-100 pg/mL Total Protein 6.0 5.7-8.2 g/dL Albumin 3.8 3.2-4.8 g/dL Thyroid Stimulating Hormone (TSH) 0.73 0.55-4.78 uIU/mL Assessment Sepsis with pneumonia/UTI Acute on chronic decompensated HFmrEF, NYHA Class III NSTEMI, likely type 2 secondary to above Coronary artery disease status post PTCA including four ONEIL (On plavix therapy) CKD stage IIIa Hypertension Dyslipidemia Nicotine dependence Methamphetamine abuse Medical noncompliance Plan/Recommendation (Dr. Barrios) The patient presents with pleuritic chest pain. We will continue further cardiac evaluation with a transthoracic echocardiogram to evaluate cardiac function. In the meantime, initiate preload and afterload reduction, strict I& Os, daily weight, and maintain fluid restrictions. Initiate GDMT for CHF and titrate as tolerated. Continue dual-antiplatelet therapy and lipid lowering agent given history of multiple ONEIL. Monitor ECG changes closely and notify. DVT/VTE prophylaxis. Thank you for allowing us to participate in this patient's care. Please call if you have any questions or concerns. This medical document was created using an electronic medical record system with voice recognition software and computerized dictation system. Although this document has been carefully reviewed, there might still be some phonetic and typographical errors. Occasional wrong-word or ``sound-alike substitutions may have occurred due to the inherent limitations of voice recognition software. These areas are purely typographical due to imperfections of the software programs and do not reflect any compromise in the patient's medical care. Please read the chart carefully and recognize, using context, where these substitutions have occurred. Plan discussed with: Patient, Other NYHA Physical activity limitations: Class3(Marked) ordinary (activity causes symtoms) Date of Service: Aug 10, 2025 Billing Provider: ILEANA MOONEY Cardiology Common Codes: [id number] INP/OBS CARE (High) ILEANA MOONEY Aug 10, 2025 14:54
[2025-08-10 16:56] LABS: COVID19 ANTIGEN SOFIA FIA NEGATIVE (NEGATIVE)
[2025-08-10] MEDS: FUROSEMIDE 40 MG/4 ML VIAL IV SCH (17:35)
[2025-08-10] MEDS: ATORVASTATIN 20 MG TAB PO SCH (21:36)
--- NOTE | 2025-08-10 23:41 | DVHINCON2 ---
Date Seen: Aug 10, 2025 Referring Physician MD Chon Reason for Consultation Chest pain with slightly elevated troponin History of Present Illness This is a 70-year-old male with a past past medical history of coronary artery disease status post PTCA including ONEIL x4 (completed at [facility] ?date), congestive heart failure, hypertension, dyslipidemia, tobacco use, and methamphetamine use who presented to the emergency room via EMS with a complaint of chest pain for 2.5 hours. The patient is a very poor historian. Information mostly obtained from records which indicate the patient reported he was watching TV at the onset of symptoms and described as substernal, stabbing, nonradiating, worse with inspiration, and associated with a productive cough, pyrexia, and SOB. EN route to the hospital he was medicated with NTG SL 0.4 mg x 3 and ASA 324 mg p.o. x1. Upon arrival to the emergency room he underwent multiple 12 lead electroc ardiogram revealing a sinus rhythm with T-wave inversion to lead V3-V4 and an associated right bundle branch block. Troponin levels peaked at 60 ng/L. Chest x-ray showed mild cardiomegaly with findings suggestive of congestive heart failure. Underlying infectious process can not be excluded. Patient was admitted to the hospital. I am asked to consult on this patient. Past Medical History Past medical history reviewed. No other significant than mentioned above. Past Surgical History PTCA including four ONEIL Family History: Alcoholism G8 MOTHER G8 FATHER Cardiovascular disease G8 FATHER G8 SISTER Colon cancer G8 BROTHER Hypertension G8 MOTHER Allergies: Coded Allergies: NO KNOWN ALLERGIES (Unverified , 05/08/10) Home Meds Reported Medications Clopidogrel Bisulfate (Plavix) 75 Mg Tab, 1 TAB PO DAILY, #90 TAB 1 Refill 06/10/22 Oxybutynin Chloride (Ditropan Xl) 5 Mg Tab, 5 MG PO, TAB 06/10/22 Losartan Potassium (Losartan Potassium) 50 Mg Tab, 1 TAB PO DAILY, #30 TAB 5 Refills 06/10/22 Carvedilol (Carvedilol) 25 Mg Tab, 25 MG PO Q12HR for 30 Days, MG 06/10/22 Atorvastatin Calcium (ATORVASTATIN CALCIUM) 80 Mg Tab, 1 TAB PO DAILY, #30 TAB 5 Refills 06/10/22 Amlodipine Besylate (Amlodipine Besylate) 5 Mg Tab, 1 TAB PO DAILY, #30 TAB 5 Refills 06/10/22 Aspirin (Aspir-Low) 81 Mg Tab, 81 MG PO DAILY@BREAKFAST for 30 Days, MG 06/10/22 Current Medications Current Medications Medications (Trade) Dose Ordered Sig/Vera Route PRN Reason Start Time Stop Time Status Last Admin Nitroglycerin (Ntrostat Sublingual) 0.4 mg Q5MINP PRN SL FOR CHEST PAIN 08/09/25 21:00 Morphine Sulfate 2 mg Q30M PRN IV FOR CHEST PAIN 08/09/25 21:00 Ceftriaxone Sodium 50 ml @ 100 mls/hr DAILY@09 IV 08/10/25 09:00 08/10/25 09:21 Doxycycline Hyclate 100 ml @ 50 mls/hr Q12H IV 08/10/25 09:00 08/10/25 10:46 Aspirin 81 mg DAILY PO 08/10/25 10:00 08/10/25 08:20 Atorvastatin Calcium (Lipitor) 40 mg HS PO 08/09/25 22:00 08/10/25 00:19 DC 08/09/25 22:35 Carvedilol (Coreg Tablet) 25 mg Q12HR PO 08/09/25 22:00 08/10/25 08:25 Losartan Potassium (Cozaar Tablet) 25 mg DAILY PO 08/10/25 10:00 08/10/25 08:21 Pantoprazole Sodium (Protonix Tablet) 40 mg DAILY@0600 PO 08/10/25 06:00 08/10/25 05:23 Enoxaparin Sodium (Lovenox) 30 mg DAILY SC 08/10/25 10:00 08/10/25 08:27 Furosemide (Lasix Injection) 20 mg DAILY IV 08/10/25 10:00 08/10/25 14:51 DC 08/10/25 08:26 Atorvastatin Calcium (Lipitor) 80 mg HS PO 08/10/25 22:00 Clopidogrel Bisulfate (Plavix) 75 mg DAILY PO 08/11/25 10:00 Furosemide (Lasix Injection) 40 mg BIDD IV 08/10/25 18:00 Review of Systems Constitutional: Pyrexia Ears, Nose, & Throat: No symptom reported Eyes: No symptom reported Neurological: No symptoms reported Pulmonary/Respiratory: Pleuritic chest pain, productive cough, SOB Cardiovascular: No symptom reported Gastrointestinal: No symptom reported Genitourinary: No symptom reported Musculoskeletal: No symptom reported Skin: No symptom reported Psychiatric: No symptom reported Endocrine: No symptom reported Hemotologic/Lymphatic: No symptom reported Vital Signs Vital Signs Date Time Temp Pulse Resp B/P (MAP) Pulse Ox O2 Delivery O2 Flow Rate FiO2 08/10/25 13:00 98.1 52 14 100/71 (81) 96 98.1 08/10/25 08:10 Room Air* 0 21 Physical Exam GENERAL: Alert and oriented x 3. No acute distress.Unkept, disheveled. EYES: PERRL, EOMI. Anicteric. HENT: Moist mucous membranes. LUNGS: Clear to auscultation bilaterally. CARDIOVASCULAR: Regular rate and rhythm. ABDOMEN: Soft, nontender and nondistended. EXTREMITIES: No edema. NEUROLOGIC: No focal neurological deficits. SKIN: Warm, dry. Labs/Diagnostic Data Labs Test 08/10/25 05:06 08/09/25 23:50 08/09/25 22:40 08/09/25 22:15 Range/Units Hemoglobin A1c 5.1 <5.7 % A1C Triglycerides Level 84 < 150 mg/dL Cholesterol Level 173 < 200 mg/dL LDL Cholesterol 135 H < 100 mg/dL HDL Cholesterol 37 L 40-59 mg/dL Lactic Acid Level 1.2 0.4-2.0 mmol/L Urine Color Colorless Yellow Urine Clarity Turbid H Clear Urine pH 5.5 5.0-9.0 Urine Specific [place] 1.012 1.001-1.035 Urine Protein 1+ H Negative Urine Ketones Negative Negative Urine Blood Trace H Negative /uL Urine Nitrite 2+ H Negative Urine Bilirubin Negative Negative Urine Urobilinogen Normal Negative mg/dL Urine Leukocyte Esterase 3+ Negative /uL Urine RBC 6 0 - 3 /hpf Urine Microscopic WBC 138 H 0-3 /HPF Urine Squamous Epithelial Cells None seen <5 /hpf Urine Bacteria Few H None Seen /hpf Urine Yeast (Budding) Occasional None Seen /hpf Urine Glucose 4+ H Normal mg/dL Urine Opiates Screen Neg NEGATIVE Urine Fentanyl Screen Neg NEGATIVE Urine Barbiturates Screen Neg NEGATIVE Urine Phencyclidine Screen Neg NEGATIVE Urine Amphetamines Screen Pos NEGATIVE Urine Benzodiazepines Screen Neg NEGATIVE Urine Cocaine Screen Neg NEGATIVE Urine Cannabinoids Screen Neg NEGATIVE Troponin I High Sensitivity 57 *H </=54 ng/L Test 08/09/25 19:32 Range/Units White Blood Count 11.7 H 4.4-10.8 10^3/uL Red Blood Count 4.47 L 4.5-5.90 10^6/uL Hemoglobin 13.4 L 13.5-17.5 g/dL Hematocrit 39.1 L 41.0-53.0 % Mean Corpuscular Volume 87.6 80.0-100.0 fL Mean Corpuscular Hemoglobin 30.0 28.0-32.0 pg Mean Corpuscular Hemoglobin Concent 34.3 32.0-36.0 g/dL Red Cell Distribution Width 14.6 H 11.8-14.3 % Platelet Count 221 140-450 10^3/uL Mean Platelet Volume 8.7 6.9-10.8 fL Neutrophils (%) (Auto) 85.1 H 37.0-80.0 % Lymphocytes (%) (Auto) 5.8 L 10.0-50.0 % Monocytes (%) (Auto) 7.6 0.0-12.0 % Eosinophils (%) (Auto) 0.9 0.0-7.0 % Basophils (%) (Auto) 0.6 0.0-2.0 % Neutrophils # (Auto) 9.9 H 1.6-8.6 10 ^3/uL Lymphocytes # (Auto) 0.7 0.4-5.4 10 ^3/uL Monocytes # (Auto) 0.9 0-1.3 10 ^3/uL Eosinophils # (Auto) 0.1 0-0.8 10 ^3/uL Basophils # (Auto) 0.1 0-0.2 10 ^3/uL Nucleated Red Blood Cells 0.0 % Erythrocyte Sedimentation Rate 17 0-20 mm/hr Prothrombin Time 10.9 9.3-11.8 sec Prothrombin Time INR 1.03 0.9-1.15 Activated Partial Thromboplast Time 31.3 24.5-34.5 SEC D-Dimer, Quantitative 1.08 H 0.0-0.49 mg/L FEU Sodium Level 142 136-145 mmol/L Potassium Level 3.6 3.5-5.1 mmol/L Chloride Level 108 H 98-107 mmol/L Carbon Dioxide Level 23 20-31 mmol/L Anion Gap 11 5-15 Blood Urea Nitrogen 21 9-23 mg/dL Creatinine 1.52 H 0.700-1.30 mg/dL Glomerular Filtration Rate Calc 49 >90 mL/min BUN/Creatinine Ratio 13.8 10.0-20.0 Serum Glucose 108 H 74-106 mg/dL Calcium Level 8.8 8.7-10.4 mg/dL Magnesium Level 1.9 1.6-2.6 mg/dL Total Bilirubin 1.5 H 0.2-1.0 mg/dL Aspartate Amino Transferase (AST) 20 13-40 U/L Alanine Aminotransferase (ALT) 17 7-40 U/L Alkaline Phosphatase 93 46-116 U/L C-Reactive Protein High Sensitivity 4.19 H <1.0 mg/dL B-Type Natriuretic Peptide 1678.52 0-100 pg/mL Total Protein 6.0 5.7-8.2 g/dL Albumin 3.8 3.2-4.8 g/dL Thyroid Stimulating Hormone (TSH) 0.73 0.55-4.78 uIU/mL Assessment Sepsis with pneumonia/UTI. Acute on chronic decompensated HFmrEF, NYHA Class III. NSTEMI, likely type 2 secondary to above. Coronary artery disease status post PTCA including four ONEIL (On plavix therapy). CKD stage IIIa. Hypertension. Dyslipidemia. Nicotine dependence. Methamphetamine abuse. Medical noncompliance. Plan/Recommendation I agree with your ongoing assessment and care of plan. Patient has been seen by Alanna Varma NP on my behalf, her and I discussed the plan with the patient. The patient presents with pleuritic chest pain. We will continue further cardiac evaluation with a transthoracic echocardiogram to evaluate cardiac function. In the meantime, initiate preload and afterload reduction, strict I&Os, daily weight, and maintain fluid restrictions. Initiate GDMT for CHF and titrate as tolerated. Continue dual-antiplatelet therapy and lipid lowering agent given history of multiple ONEIL. Monitor ECG changes closely and notify. DVT/VTE prophylaxis. Additional plan as per the hospital course. Plan discussed with: Patient NYHA Physical activity limitations: Class3(Marked) ordinary Date of Service: Aug 10, 2025 Billing Provider: LUKAS LE MD Cardiology Common Codes: [id number] INP/OBS CARE (High) Cardiology Consultation Codes: [id number] CONSULT <45MIN LUKAS LE MD Aug 10, 2025 15:05
[2025-08-11] VITALS (8 sets, daily range): BP systolic 118–141; BP diastolic 72–90; PULSE 50–74; RESP 15–18; TEMP 97.6–98.2; O2SAT 96–100
[2025-08-11] MEDS: CLOPIDOGREL BISULFATE 75 MG TAB PO SCH (09:55)
--- NOTE | 2025-08-11 13:22 | DVHPN2 ---
Subjective Chest pain Reviewed: Care Plan, H&P, Labs, Medications, Previous Orders, Radiology Changes from previous H/P or p: No Changes Eyes: No Pain, No Vision change, No Conjunctivae inflammation, No Eyelid inflammation, No Other, No Redness Cardiovascular: Chest Pain Respiratory: Cough, Shortness of breath, SOB with excertion Gastrointestinal: No Nausea, No Vomiting, No Abdominal Pain, No Diarrhea, No Constipation, No Melena, No Hematochezia, No Other Genitourinary: No Dysuria, No Frequency, No Incontinence, No Hematuria, No Retention, No Other Musculoskeletal: No other, No neck pain, No shoulder pain, No arm pain, No back pain, No hand pain, No leg pain, No foot pain Objective Vitals Vital Signs Date Time Temp Pulse Resp B/P (MAP) Pulse Ox O2 Delivery O2 Flow Rate FiO2 08/11/25 09:55 141/87 08/11/25 09:55 73 08/11/25 09:00 97.7 18 97 97.7 08/11/25 08:00 Nasal Cannula* 2 28 Intake/Output Intake and Output 08/11/25 07:00 Intake Total 2000 ml Output Total 1475 ml Balance 525 ml Intake Oral 1750 ml IV Total 250 ml Output Urine Total 1475 ml # Bowel Movements 1 Medications Current Medications Medications Dose Ordered Sig/Vera Route Start Time Stop Time Status Last Admin Dose Admin Nitroglycerin 0.4 mg Q5MINP PRN SL 08/09/25 21:00 Morphine Sulfate 2 mg Q30M PRN IV 08/09/25 21:00 Ceftriaxone Sodium 50 ml @ 100 mls/hr DAILY@09 IV 08/10/25 09:00 08/11/25 09:53 100 MLS/HR Doxycycline Hyclate 100 ml @ 50 mls/hr Q12H IV 08/10/25 09:00 08/11/25 09:53 50 MLS/HR Aspirin 81 mg DAILY PO 08/10/25 10:00 08/11/25 09:53 81 MG Carvedilol 25 mg Q12HR PO 08/09/25 22:00 08/11/25 09:55 25 MG Losartan Potassium 25 mg DAILY PO 08/10/25 10:00 08/11/25 09:55 25 MG Pantoprazole Sodium 40 mg DAILY@0600 PO 08/10/25 06:00 08/11/25 05:23 40 MG Enoxaparin Sodium 30 mg DAILY SC 08/10/25 10:00 08/11/25 09:55 30 MG Atorvastatin Calcium 80 mg HS PO 08/10/25 22:00 08/10/25 21:36 80 MG Clopidogrel Bisulfate 75 mg DAILY PO 08/11/25 10:00 08/11/25 09:55 75 MG Furosemide 40 mg BIDD IV 08/10/25 18:00 08/11/25 05:22 40 MG Laboratory Results Laboratory Tests 08/09/25 19:32 Urinalysis Test 08/09/25 22:40 Urine Color Colorless (Yellow) Urine Clarity Turbid (Clear) H Urine pH 5.5 (5.0-9.0) Urine Specific [place] 1.012 (1.001-1.035) Urine Protein 1+ (Negative) H Urine Ketones Negative (Negative) Urine Blood Trace /uL (Negative) H Urine Nitrite 2+ (Negative) H Urine Bilirubin Negative (Negative) Urine Urobilinogen Normal mg/dL (Negative) Urine Leukocyte Esterase 3+ /uL (Negative) Urine RBC 6 /hpf (0 - 3) Urine Microscopic WBC 138 /HPF (0-3) H Urine Squamous Epithelial Cells None seen /hpf (<5) Urine Bacteria Few /hpf (None Seen) H Urine Yeast (Budding) Occasional /hpf (None Urine Glucose 4+ mg/dL (Normal) H Microbiology Microbiology Date/Time Source Procedure Growth Status 08/09/25 22:40 Voided Urine Urine Culture - Preliminary Resulted 08/09/25 21:27 Blood Blood Culture - Preliminary NO GROWTH AFTER 24 HOURS OF INCUBATION. Resulted Labs and/or images reviewed: Labs reviewed by me, Image(s) reviewed by me Assessment/Plan Assessment/Plan Chest pain rule out ACS troponin 57, treatment per ACS protocol, cardiology consult for Dr. Barrios appreciated Possible Pneumonia Gram-positive versus negative Rocephin doxycycline Sepsis due to pneumonia Acute CHF systolic versus diastolic NSTEMI type 2 Elevated d -dimer Rule out PE Bronchiectasis Urinary tract infection: Blood cultures negative, urine cultures pending, continue Rocephin Lactic acidosis CKD stage 3 History of coronary artery disease with PTCA * 4 stents Hypertension Chronic history of smoking more than 60 years, counselled, patient says patch does not work. Refused patch Methamphetamine abuse counseling Left ventricular hypertrophy Lives alone in [facility] Time spent 70 minutes Advanced care planning time 20 minutes Patient is full code Plan discussed with: Patient Date of Service: Aug 11, 2025 Billing Provider: ARJUN BILLINGS MD Common Visit Codes: [id number] CARE 30-74 MIN ARJUN BILLINGS MD Aug 11, 2025 13:22
--- NOTE | 2025-08-11 15:18 | DVHPN2 ---
Consult Progress Note Date Seen: Aug 11, 2025 Subjective Review of Systems: CVS:Normal, RESPIRATORY:Normal, NEURO:Normal Other Systems: Denies any cardiac symptoms Objective vital signs Vital Sign Date Time Temp Pulse Resp B/P (MAP) Pulse Ox O2 Delivery O2 Flow Rate FiO2 08/11/25 13:00 97.8 55 17 121/72 (88) 100 97.8 08/11/25 08:00 Nasal Cannula* 2 28 Total Intake and Output 08/10/25 08/10/25 08/11/25 15:00 23:00 07:00 Intake Total 150 ml 1000 ml 850 ml Output Total 825 ml 650 ml Balance 150 ml 175 ml 200 ml medications Current Medications Medications Dose Ordered Sig/Vera Route Start Time Stop Time Status Last Admin Dose Admin Nitroglycerin 0.4 mg Q5MINP PRN SL 08/09/25 21:00 Morphine Sulfate 2 mg Q30M PRN IV 08/09/25 21:00 Ceftriaxone Sodium 50 ml @ 100 mls/hr DAILY@09 IV 08/10/25 09:00 08/11/25 09:53 100 MLS/HR Doxycycline Hyclate 100 ml @ 50 mls/hr Q12H IV 08/10/25 09:00 08/11/25 09:53 50 MLS/HR Aspirin 81 mg DAILY PO 08/10/25 10:00 08/11/25 09:53 81 MG Carvedilol 25 mg Q12HR PO 08/09/25 22:00 08/11/25 09:55 25 MG Losartan Potassium 25 mg DAILY PO 08/10/25 10:00 08/11/25 09:55 25 MG Pantoprazole Sodium 40 mg DAILY@0600 PO 08/10/25 06:00 08/11/25 05:23 40 MG Enoxaparin Sodium 30 mg DAILY SC 08/10/25 10:00 08/11/25 09:55 30 MG Atorvastatin Calcium 80 mg HS PO 08/10/25 22:00 08/10/25 21:36 80 MG Clopidogrel Bisulfate 75 mg DAILY PO 08/11/25 10:00 08/11/25 09:55 75 MG Furosemide 40 mg BIDD IV 08/10/25 18:00 08/11/25 05:22 40 MG Examination: LUNGS:Normal, CVS:Normal, NEURO:Normal laboratory and microbiology Laboratory Tests 08/09/25 19:32 Test 08/09/25 19:32 Range/Units Serum Glucose 108 H 74-106 mg/dL Problem List/Assessment/Plan Problem List/Assessment/Plan Sepsis with pneumonia/UTI Acute on chronic decompensated HFmrEF, NYHA Class III NSTEMI, likely type 2 secondary to above Coronary artery disease status post PTCA including four ONEIL (On plavix therapy) CKD stage IIIa Hypertension Dyslipidemia Nicotine dependence Methamphetamine abuse Medical noncompliance Plan/Recommendation (Dr. Barrios) A transthoracic echocardiogram revealed a LVEF of 50%. Continue GDMT for CHF and titrate as tolerated. Continue dual-antiplatelet therapy and lipid lowering agent given history of multiple ONEIL. Follow-up with primary travel rn or at [facility] as scheduled. There is no further cardiac work-up indicated at this time. Consider routine blood work as in-patient. Thank you for allowing us to participate in this patient's care. Please call if you have any questions or concerns. This medical document was created using an electronic medical record system with voice recognition software and computerized dictation system. Although this document has been carefully reviewed, there might still be some phonetic and typographical errors. Occasional wrong-word or ``sound-alike substitutions may have occurred due to the inherent limitations of voice recognition software. These areas are purely typographical due to imperfections of the software programs and do not reflect any compromise in the patient's medical care. Please read the chart carefully and recognize, using context, where these substitutions have occurred. Plan discussed with: Patient, Other Date of Service: Aug 11, 2025 Billing Provider: ILEANA MOONEY Cardiology Common Codes: [id number] HOSP CARE(High ILEANA MOONEY Aug 11, 2025 15:18
--- NOTE | 2025-08-11 22:34 | DVHPN2 ---
Consult Progress Note Date Seen: Aug 11, 2025 Subjective Review of Systems: CVS:Normal, RESPIRATORY:Normal, NEURO:Normal Other Systems: Patient was seen and evaluated in follow up. Patient is on 2 LPM NC. Transthoracic echocardiogram revealed a LVEF of 50%. Telemetry reviewed. Objective vital signs Vital Sign Date Time Temp Pulse Resp B/P (MAP) Pulse Ox O2 Delivery O2 Flow Rate FiO2 08/11/25 21:18 63 137/87 08/11/25 21:00 98.0 18 96 98.0 08/11/25 08:00 Nasal Cannula* 2 28 Total Intake and Output 08/10/25 08/10/25 08/11/25 15:00 23:00 07:00 Intake Total 150 ml 1000 ml 850 ml Output Total 825 ml 650 ml Balance 150 ml 175 ml 200 ml medications Current Medications Medications Dose Ordered Sig/Vera Route Start Time Stop Time Status Last Admin Dose Admin Nitroglycerin 0.4 mg Q5MINP PRN SL 08/09/25 21:00 Morphine Sulfate 2 mg Q30M PRN IV 08/09/25 21:00 Ceftriaxone Sodium 50 ml @ 100 mls/hr DAILY@09 IV 08/10/25 09:00 08/11/25 09:53 100 MLS/HR Doxycycline Hyclate 100 ml @ 50 mls/hr Q12H IV 08/10/25 09:00 08/11/25 21:19 50 MLS/HR Aspirin 81 mg DAILY PO 08/10/25 10:00 08/11/25 09:53 81 MG Carvedilol 25 mg Q12HR PO 08/09/25 22:00 08/11/25 21:18 25 MG Losartan Potassium 25 mg DAILY PO 08/10/25 10:00 08/11/25 09:55 25 MG Pantoprazole Sodium 40 mg DAILY@0600 PO 08/10/25 06:00 08/11/25 05:23 40 MG Enoxaparin Sodium 30 mg DAILY SC 08/10/25 10:00 08/11/25 09:55 30 MG Atorvastatin Calcium 80 mg HS PO 08/10/25 22:00 08/11/25 21:19 80 MG Clopidogrel Bisulfate 75 mg DAILY PO 08/11/25 10:00 08/11/25 09:55 75 MG Furosemide 40 mg DAILY PO 08/12/25 10:00 Examination: GENERAL:Normal, HEENT:Normal, NECK:Normal, LUNGS:Normal, CVS:Normal, ABDOMEN:Normal, MSK:Normal, SKIN:Normal, NEURO:Normal laboratory and microbiology Laboratory Tests 08/09/25 19:32 Test 08/09/25 19:32 Range/Units Serum Glucose 108 H 74-106 mg/dL Problem List/Assessment/Plan Problem List/Assessment/Plan Sepsis with pneumonia/UTI. Acute on chronic decompensated HFmrEF, NYHA Class III. NSTEMI, likely type 2 secondary to above. Coronary artery disease status post PTCA including four ONEIL (On plavix therapy). CKD stage IIIa. Hypertension. Dyslipidemia. Nicotine dependence. Methamphetamine abuse. Medical noncompliance. Plan/Recommendation Continued all current supportive medical care. Patient has been seen by Alanna Varma NP on my behalf. We have discussed the plan with the patient. A transthoracic echocardiogram revealed a LVEF of 50%. Continue GDMT for CHF and titrate as tolerated. Continue dual-antiplatelet therapy and lipid lowering agent given history of multiple ONEIL. Follow-up with primary mannequin maker at [facility] as scheduled. Consider routine blood work as in-patient. Additional plan as per the hospital course. Plan discussed with: Patient Date of Service: Aug 11, 2025 Billing Provider: LUKAS LE MD Cardiology Common Codes: [id number] [facility] LUKAS LE MD Aug 11, 2025 22:34
[2025-08-12 01:00] VITALS: BP 111/71; PULSE 58; RESP 18; TEMP 97.8; O2SAT 98
[2025-08-12 05:00] VITALS: BP 126/78; PULSE 57; RESP 17; TEMP 97.8; O2SAT 97
[2025-08-12 08:00] VITALS: PULSE 53; PULSE 57; RESP 18; O2SAT 97
[2025-08-12 09:00] VITALS: BP 131/83; PULSE 68; RESP 20; TEMP 97.5; O2SAT 97
[2025-08-12] MEDS: FUROSEMIDE 40 MG TAB PO SCH (09:49)
[2025-08-12] MEDS ORDERED: DOXY100C79 PO (12:55)
--- NOTE | 2025-08-12 12:58 | DVHPN2 ---
Subjective Chest pain Reviewed: Care Plan, H&P, Labs, Medications, Previous Orders, Radiology Changes from previous H/P or p: No Changes Eyes: No Pain, No Vision change, No Conjunctivae inflammation, No Eyelid inflammation, No Other, No Redness Cardiovascular: Chest Pain Respiratory: Cough, Shortness of breath, SOB with excertion Gastrointestinal: No Nausea, No Vomiting, No Abdominal Pain, No Diarrhea, No Constipation, No Melena, No Hematochezia, No Other Genitourinary: No Dysuria, No Frequency, No Incontinence, No Hematuria, No Retention, No Other Musculoskeletal: No other, No neck pain, No shoulder pain, No arm pain, No back pain, No hand pain, No leg pain, No foot pain Objective Vitals Vital Signs Date Time Temp Pulse Resp B/P (MAP) Pulse Ox O2 Delivery O2 Flow Rate FiO2 08/12/25 09:52 123/64 08/12/25 09:50 56 08/12/25 09:00 97.5 20 97 97.5 08/12/25 08:00 Nasal Cannula* 2 28 Intake/Output Intake and Output 08/12/25 07:00 Intake Total 1365 ml Output Total 875 ml Balance 490 ml Intake Oral 1115 ml IV Total 250 ml Output Urine Total 875 ml Medications Current Medications Medications Dose Ordered Sig/Vera Route Start Time Stop Time Status Last Admin Dose Admin Nitroglycerin 0.4 mg Q5MINP PRN SL 08/09/25 21:00 Morphine Sulfate 2 mg Q30M PRN IV 08/09/25 21:00 Ceftriaxone Sodium 50 ml @ 100 mls/hr DAILY@09 IV 08/10/25 09:00 08/12/25 09:53 100 MLS/HR Doxycycline Hyclate 100 ml @ 50 mls/hr Q12H IV 08/10/25 09:00 08/12/25 09:52 50 MLS/HR Aspirin 81 mg DAILY PO 08/10/25 10:00 08/12/25 09:49 81 MG Carvedilol 25 mg Q12HR PO 08/09/25 22:00 08/11/25 21:18 25 MG Losartan Potassium 25 mg DAILY PO 08/10/25 10:00 08/11/25 09:55 25 MG Pantoprazole Sodium 40 mg DAILY@0600 PO 08/10/25 06:00 08/12/25 05:25 40 MG Enoxaparin Sodium 30 mg DAILY SC 08/10/25 10:00 08/12/25 09:52 30 MG Atorvastatin Calcium 80 mg HS PO 08/10/25 22:00 08/11/25 21:19 80 MG Clopidogrel Bisulfate 75 mg DAILY PO 08/11/25 10:00 08/12/25 09:52 75 MG Furosemide 40 mg DAILY PO 08/12/25 10:00 08/12/25 09:49 40 MG Laboratory Results Laboratory Tests 08/09/25 19:32 Urinalysis Test 08/09/25 22:40 Urine Color Colorless (Yellow) Urine Clarity Turbid (Clear) H Urine pH 5.5 (5.0-9.0) Urine Specific [place] 1.012 (1.001-1.035) Urine Protein 1+ (Negative) H Urine Ketones Negative (Negative) Urine Blood Trace /uL (Negative) H Urine Nitrite 2+ (Negative) H Urine Bilirubin Negative (Negative) Urine Urobilinogen Normal mg/dL (Negative) Urine Leukocyte Esterase 3+ /uL (Negative) Urine RBC 6 /hpf (0 - 3) Urine Microscopic WBC 138 /HPF (0-3) H Urine Squamous Epithelial Cells None seen /hpf (<5) Urine Bacteria Few /hpf (None Seen) H Urine Yeast (Budding) Occasional /hpf (None Urine Glucose 4+ mg/dL (Normal) H Microbiology Microbiology Date/Time Source Procedure Growth Status 08/09/25 22:40 Voided Urine Urine Culture - Preliminary Resulted 08/09/25 21:27 Blood Blood Culture - Preliminary NO GROWTH AFTER 48 HOURS OF INCUBATION. Resulted Labs and/or images reviewed: Labs reviewed by me, Image(s) reviewed by me Assessment/Plan Assessment/Plan Chest pain rule out ACS troponin 57, treatment per ACS protocol, cardiology consult for Dr. Barrios appreciated echo 50 percent ejection fraction Possible Pneumonia Gram-positive versus negative Rocephin doxycycline Sepsis due to pneumonia Acute CHF systolic versus diastolic NSTEMI type 2 Elevated d -dimer DVT ruled out, PE ruled out Bronchiectasis Urinary tract infection: Blood cultures negative, urine cultures growing Gram- negative rods, continue Rocephin Lactic acidosis CKD stage 3 History of coronary artery disease with PTCA * 4 stents Hypertension Chronic history of smoking more than 60 years, counselled, patient says patch does not work. Refused patch Methamphetamine abuse counseling Left ventricular hypertrophy Lives alone in [place] Time spent 70 minutes Advanced care planning time 20 minutes Patient is full code Urine cultures growing Gram-negative rods final result still pending but the patient wants to go home and requesting to be discharged today Plan discussed with: Patient Date of Service: Aug 12, 2025 Billing Provider: ARJUN BILLINGS MD Common Visit Codes: [id number] INP/OBS CARE(HIGH) ARJUN BILLINGS MD Aug 12, 2025 12:58
[2025-08-12 13:00] VITALS: BP_SYST 125; BP_SYST 157; BP_DIAS 77; BP_DIAS 78; PULSE 55; PULSE 63; RESP 18; RESP 20; TEMP 97.7; O2SAT 97; O2SAT 98
[2025-08-12] MEDS ORDERED: CIPR-173 PO (13:01)
--- NOTE | 2025-08-12 13:05 | DVHDS2 ---
Discharge Summary Date of Admission Aug 09, 2025 at 20:56 Date of Discharge: Aug 12, 2025 Admitting Diagnosis Chest pain Wounds: None Labs/Diagnostic Data: Laboratory Results Test 08/10/25 15:45 08/10/25 15:20 08/10/25 05:06 08/09/25 23:50 SARS-CoV-2 Antigen (Rapid) Negative (NEGATIVE) Influenza Type A Antigen Negative (Negative) Influenza Type B Antigen Negative (Negative) Hemoglobin A1c 5.1 % A1C (<5.7) Triglycerides Level 84 mg/dL (< 150) Cholesterol Level 173 mg/dL (< 200) LDL Cholesterol 135 mg/dL (< 100) HDL Cholesterol 37 mg/dL (40-59) Lactic Acid Level 1.2 mmol/L (0.4-2.0) Test 08/09/25 22:40 08/09/25 22:15 08/09/25 19:32 Urine Color Colorless (Yellow) Urine Clarity Turbid (Clear) Urine pH 5.5 (5.0-9.0) Urine Specific [place] 1.012 (1.001-1.035) Urine Protein 1+ (Negative) Urine Ketones Negative (Negative) Urine Blood Trace /uL (Negative) Urine Nitrite 2+ (Negative) Urine Bilirubin Negative (Negative) Urine Urobilinogen Normal mg/dL (Negative) Urine Leukocyte Esterase 3+ /uL (Negative) Urine RBC 6 /hpf (0 - 3) Urine Microscopic WBC 138 /HPF (0-3) Urine Squamous Epithelial Cells None seen /hpf (<5) Urine Bacteria Few /hpf (None Seen) Urine Yeast (Budding) Occasional /hpf (None Urine Glucose 4+ mg/dL (Normal) Urine Opiates Screen Neg (NEGATIVE) Urine Fentanyl Screen Neg (NEGATIVE) Urine Barbiturates Screen Neg (NEGATIVE) Urine Phencyclidine Screen Neg (NEGATIVE) Urine Amphetamines Screen Pos (NEGATIVE) Urine Benzodiazepines Screen Neg (NEGATIVE) Urine Cocaine Screen Neg (NEGATIVE) Urine Cannabinoids Screen Neg (NEGATIVE) Troponin I High Sensitivity 57 ng/L (</=54) White Blood Count 11.7 10^3/uL (4.4-10.8) Red Blood Count 4.47 10^6/uL (4.5-5.90) Hemoglobin 13.4 g/dL (13.5-17.5) Hematocrit 39.1 % (41.0-53.0) Mean Corpuscular Volume 87.6 fL (80.0-100.0) Mean Corpuscular Hemoglobin 30.0 pg (28.0-32.0) Mean Corpuscular Hemoglobin Concent 34.3 g/dL (32.0-36.0) Red Cell Distribution Width 14.6 % (11.8-14.3) Platelet Count 221 10^3/uL (140-450) Mean Platelet Volume 8.7 fL (6.9-10.8) Neutrophils (%) (Auto) 85.1 % (37.0-80.0) Lymphocytes (%) (Auto) 5.8 % (10.0-50.0) Monocytes (%) (Auto) 7.6 % (0.0-12.0) Eosinophils (%) (Auto) 0.9 % (0.0-7.0) Basophils (%) (Auto) 0.6 % (0.0-2.0) Neutrophils # (Auto) 9.9 10 ^3/uL (1.6-8.6) Lymphocytes # (Auto) 0.7 10 ^3/uL (0.4-5.4) Monocytes # (Auto) 0.9 10 ^3/uL (0-1.3) Eosinophils # (Auto) 0.1 10 ^3/uL (0-0.8) Basophils # (Auto) 0.1 10 ^3/uL (0-0.2) Nucleated Red Blood Cells 0.0 % Erythrocyte Sedimentation Rate 17 mm/hr (0-20) Prothrombin Time 10.9 sec (9.3-11.8) Prothrombin Time INR 1.03 (0.9-1.15) Activated Partial Thromboplast Time 31.3 SEC (24.5-34.5) D-Dimer, Quantitative 1.08 mg/L FEU (0.0-0.49) Sodium Level 142 mmol/L (136-145) Potassium Level 3.6 mmol/L (3.5-5.1) Chloride Level 108 mmol/L (98-107) Carbon Dioxide Level 23 mmol/L (20-31) Anion Gap 11 (5-15) Blood Urea Nitrogen 21 mg/dL (9-23) Creatinine 1.52 mg/dL (0.700-1.30) Glomerular Filtration Rate Calc 49 mL/min (>90) BUN/Creatinine Ratio 13.8 (10.0-20.0) Serum Glucose 108 mg/dL (74-106) Calcium Level 8.8 mg/dL (8.7-10.4) Magnesium Level 1.9 mg/dL (1.6-2.6) Total Bilirubin 1.5 mg/dL (0.2-1.0) Aspartate Amino Transferase (AST) 20 U/L (13-40) Alanine Aminotransferase (ALT) 17 U/L (7-40) Alkaline Phosphatase 93 U/L (46-116) C-Reactive Protein High Sensitivity 4.19 mg/dL (<1.0) B-Type Natriuretic Peptide 1678.52 pg/mL (0-100) Total Protein 6.0 g/dL (5.7-8.2) Albumin 3.8 g/dL (3.2-4.8) Thyroid Stimulating Hormone (TSH) 0.73 uIU/mL (0.55-4.78) Other Laboratory Tests 08/09/25 19:32 Brief Hx & Hospital Course: 70-year-old male with a history of congestive heart failure bronchiectasis CKD three coronary artery disease status post four stents hypertension history of smoking mg 60 years methamphetamine abuse came in for chest pain troponin 67 treatment per ACS protocol consult by Dr. Ynes Barrios echo 50 percent ejection fraction advised to continue with the home medications patient has a left ventricular hypertrophy. Found to have community-acquired pneumonia Gram- positive versus Gram-negative treated with Rocephin and doxycycline also had urinary tract infection blood cultures negative urine cultures growing Gram- negative rods patient does not want wait for the urine final urine culture results and multiple discharged home today. Discharged home on doxycycline for pneumonia and Cipro for UTI he will follow up with his primary Dr and clean up supervisor at the [place]. General condition satisfactory at the time of discharge.RN kareem at bedside at the time of discussion of discharge plan Consults/Reason for consult Cardiology Dr. Ynes Barrios Operations or Procedures Echocardiogram CT chest angiogram Venous ultrasound Condition at Discharge: Fair Final Diagnosis/Problems List Chest pain rule out ACS troponin 57, treatment per ACS protocol, cardiology consult for Dr. Barrios appreciated echo 50 percent ejection fraction Possible Pneumonia Gram-positive versus negative Rocephin doxycycline Sepsis due to pneumonia Acute CHF systolic versus diastolic NSTEMI type 2 Elevated d -dimer DVT ruled out, PE ruled out Bronchiectasis Urinary tract infection: Blood cultures negative, urine cultures growing Gram-negative rods, continue Rocephin Lactic acidosis CKD stage 3 History of coronary artery disease with PTCA * 4 stents Hypertension Chronic history of smoking more than 60 years, counselled, patient says patch does not work. Refused patch Methamphetamine abuse counseling Left ventricular hypertrophy Discharge Disposition: Home Discharge Instruct/Medications Diet: Cardiac 2g Na,low cholest Activity: Light activity Follow Up/Referral: Resume All your previous home medications Follow up with [place] and [place] clean up supervisor Medications: Doxycycline for pneumonia Cipro For UTI Transmitted to the pharmacy Scheduled Amlodipine Besylate (Amlodipine Besylate), 1 TAB PO DAILY, (Reported) Aspirin (Aspir-Low), 81 MG PO DAILY@BREAKFAST, (Reported) Atorvastatin Calcium (Atorvastatin Calcium), 1 TAB PO DAILY, (Reported) Carvedilol (Carvedilol), 25 MG PO Q12HR, (Reported) Ciprofloxacin Hcl (Cipro), 1 TAB PO BID Clopidogrel Bisulfate (Plavix), 1 TAB PO DAILY, (Reported) Doxycycline (Monohydrate) (Doxycycline), 100 MG PO BID Losartan Potassium (Losartan Potassium), 1 TAB PO DAILY, (Reported) Miscellaneous Medications Oxybutynin Chloride (Ditropan Xl), 5 MG PO, (Reported) 39 (Time taken for discharge summary 39 minutes) Discharge Statement: "Patient was advised to return to the ER or call 911 if any headaches, dizziness, shortness of breath, chest pain, abdominal pain, bleeding, fevers, or worsening of medical condition. Patient was counseled about treatment plan, medications, possible side effects, patientverbalized understanding. All questions were answered to the best of my ability. This discharge took greater then 30 minutes in planning, reviewing documentation, counseling the patient, and discussing with other team members." ASSESSMENT ASSESSMENT Hospital Course Improved marginally Assessment Chest pain rule out ACS troponin 57, treatment per ACS protocol, cardiology consult for Dr. Barrios appreciated echo 50 percent ejection fraction Possible Pneumonia Gram-positive versus negative Rocephin doxycycline Sepsis due to pneumonia Acute CHF systolic versus diastolic NSTEMI type 2 Elevated d -dimer DVT ruled out, PE ruled out Bronchiectasis Urinary tract infection: Blood cultures negative, urine cultures growing Gram- negative rods, continue Rocephin Lactic acidosis CKD stage 3 History of coronary artery disease with PTCA * 4 stents Hypertension Chronic history of smoking more than 60 years, counselled, patient says patch does not work. Refused patch Methamphetamine abuse counseling Left ventricular hypertrophy Date of Service: Aug 12, 2025 Billing Provider: ARJUN BILLINGS MD Common Visit Codes: [id number] DISCH DAY >30min ARJUN BILLINGS MD Aug 12, 2025 13:05
[2025-08-12 14:31] VITALS: BP 123/64; PULSE 56; RESP 18; TEMP 36.5
--- NOTE | 2025-08-13 00:37 | DVHPN2 ---
Progress Note - Dictate Date Seen: Aug 12, 2025 Medical Necessity Reason Pt with a Central, PICC or Fol: No Subjective Patient was seen and evaluated in follow up. Patient has no new complaints at this time. Patient denies any cardiac symptoms. Patient is cardiac stable for discharge. Telemetry reviewed. vital signs Vital Sign Date Time Temp Pulse Resp B/P (MAP) Pulse Ox O2 Delivery O2 Flow Rate FiO2 08/12/25 14:31 36.5 56 18 08/12/25 13:00 125/77 (93) 98 08/12/25 08:00 Nasal Cannula* 2 28 Total Intake and Output 08/12/25 08/12/25 08/13/25 15:00 23:00 07:00 Intake Total 250 ml Balance 250 ml objective GENERAL: Alert and oriented x 3. No acute distress. EYES: PERRL, EOMI. Anicteric. HENT: Moist mucous membranes. LUNGS: Clear to auscultation bilaterally. CARDIOVASCULAR: Regular rate and rhythm. ABDOMEN: Soft, non-tender and non-distended. EXTREMITIES: No edema. NEUROLOGIC: No focal neurological deficits. SKIN: Warm, dry. laboratory and microbiology Laboratory Tests 08/09/25 19:32 Test 08/09/25 19:32 Range/Units Serum Glucose 108 H 74-106 mg/dL Problem List Sepsis with pneumonia/UTI. Acute on chronic decompensated HFmrEF, NYHA Class III. NSTEMI, likely type 2 secondary to above. Coronary artery disease status post PTCA including four ONEIL (On plavix therapy). CKD stage IIIa. Hypertension. Dyslipidemia. Nicotine dependence. Methamphetamine abuse. Medical noncompliance. Assessment/Plan Continued all current supportive medical care. Continue GDMT for CHF and titrate as tolerated. Continue dual-antiplatelet therapy and lipid lowering agent given history of multiple ONEIL. Follow-up with primary photo lab specialist at [facility] as scheduled. Additional plan as per the hospital course. Plan discussed with: Patient LUKAS LE MD Aug 13, 2025 00:37
== END 2025-08-12 16:10 | disposition home or self-care (01) | DRG 871 ==
LOC: EDBD 18:15 → ER 18:15 → OVERFLOW 20:56 → TELE-WESTW 23:08
PROVIDERS: ADMIT Family Medicine; ATTEND Family Medicine
DX: A41.50 Gram-negative sepsis, unspecified (principal); I21.A1 Myocardial infarction type 2; J15.69 Pneumonia due to other Gram-negative bacteria; J15.9 Unspecified bacterial pneumonia; I50.43 Acute on chronic combined systolic (congestive) and diastolic (congestive) heart failure; I13.0 Hypertensive heart and chronic kidney disease with heart failure and stage 1 through stage 4 chronic kidney disease, or unspecified chronic kidney disease; N39.0 Urinary tract infection, site not specified; J47.0 Bronchiectasis with acute lower respiratory infection; E87.20 Acidosis, unspecified; Z16.12 Extended spectrum beta lactamase (ESBL) resistance; Z20.822 Contact with and (suspected) exposure to COVID-19; Z66 Do not resuscitate; I25.10 Atherosclerotic heart disease of native coronary artery without angina pectoris; E78.5 Hyperlipidemia, unspecified; F17.200 Nicotine dependence, unspecified, uncomplicated; F15.10 Other stimulant abuse, uncomplicated; N18.31 Chronic kidney disease, stage 3a; I45.10 Unspecified right bundle-branch block; B96.20 Unspecified Escherichia coli [E. coli] as the cause of diseases classified elsewhere; Z95.5 Presence of coronary angioplasty implant and graft; Z79.02 Long term (current) use of antithrombotics/antiplatelets; Z79.899 Other long term (current) drug therapy; Z82.49 Family history of ischemic heart disease and other diseases of the circulatory system; Z80.0 Family history of malignant neoplasm of digestive organs; Z79.82 Long term (current) use of aspirin; Z91.199 Patient's noncompliance with other medical treatment and regimen due to unspecified reason
CPT/HCPCS: 36415; 71045; 71275; 80053; 80061; 80307; 81001; 83036; 83605; 83735; 83880; 84443; 84484; 85025; 85379; 85610; 85652; 85730; 86141; 87040; 87086; 87088; 87186; 87426; 87804; 93005; 93306; 93970; 96365; 96372; 96375; G0378